=== PATIENT | female | born 1985 | race Caucasian/White ===

== ENCOUNTER 2023-12-11 16:26 | Outpatient (OUT) | payer OTHER, SELFPAY ==
--- NOTE | 2023-12-11 | XR_ITS ---
The [address] [address] Patient Name: DARIUS BRASWELL MRN: [id number] date: 1985 Sex: F Assigned Patient Location: [facility] Current Patient Location: [facility] Accession/Order Number: [id number] Exam Date: 12/11/2023 17:00 Report Date: 12/11/2023 21:22 At the request of: MONSERRAT VELA Procedure: XR foot LT min 3V EXAM: XR foot LT min 3V HISTORY: Left foot pain (M79.672) COMPARISON: None. TECHNIQUE: 3 views of the left foot were obtained. FINDINGS: There is no evidence of an acute fracture or dislocation. The joint spaces are intact throughout. Remote bony fragment of the medial and lateral sesamoid bones at the first metatarsal head are noted. No other soft tissue calcifications are present. XR/XR foot LT min 3V IMPRESSION: No acute fracture or dislocation. Remote fractures are seen at the sesamoid bones of the great toe. The joint spaces are intact throughout. Electronically authenticated by: SHORTY MOLINA Date: 12/11/2023 21:22
== END 2023-12-11 16:27 | disposition home or self-care (01) ==
LOC: RAD 16:30
PROVIDERS: PCP Nurse Practitioner; Visit Provider Nurse Practitioner
DX: M79.672 Pain in left foot (principal); S92.812S Other fracture of left foot, sequela
CPT/HCPCS: 73630

== ENCOUNTER 2024-08-17 19:48 | Outpatient (REF) | payer OTHER, SELFPAY ==
--- OUTSIDE RECORDS SUMMARY | 2024-08-17 19:54 | XMS_ITS | CCD ---
Author Organization [facility] Care Team Providers Care Car Oiler Name Role Phone SIMONA MEDRANO Attending Unavailable AICHHOLZ, BHAKTI Referring Unavailable SIMONA MEDRANO K Admitting Unavailable SIMONA MEDRANO Primary Care Unavailable [place] Attending Provider Bhakti Talavera Primary Care Provider [phone] Kiet Clark Unavailable AICHHOLZ, ECOLOGICAL ECONOMIST BHAKTI Primary Care Unavailable AICHHOLZ, ECOLOGICAL ECONOMIST BHAKTI Consulting Unavailable AICHHOLZ, ECOLOGICAL ECONOMIST BHAKTI Admitting Unavailable AICHHOLZ, ECOLOGICAL ECONOMIST BHAKTI Attending Unavailable DILLON MARIN Consulting Unavailable AICHHOLZ, ECOLOGICAL ECONOMIST BHAKTI Primary Care Unavailable AICHHOLZ, ECOLOGICAL ECONOMIST BHAKTI Admitting Unavailable AICHHOLZ, ECOLOGICAL ECONOMIST BHAKTI Attending Unavailable AICHHOLZ, ECOLOGICAL ECONOMIST BHAKTI Consulting Unavailable AICHHOLZ, ECOLOGICAL ECONOMIST BHAKTI Primary Care Unavailable AICHHOLZ, ECOLOGICAL ECONOMIST BHAKTI Admitting Unavailable AICHHOLZ, ECOLOGICAL ECONOMIST BHAKTI Attending Unavailable AICHHOLZ, ECOLOGICAL ECONOMIST BHAKTI Consulting Unavailable AICHHOLZ, ECOLOGICAL ECONOMIST BHAKTI Primary Care Unavailable AICHHOLZ, ECOLOGICAL ECONOMIST BHAKTI Attending Unavailable AICHHOLZ, ECOLOGICAL ECONOMIST BHAKTI Admitting Unavailable AICHHOLZ, ECOLOGICAL ECONOMIST BHAKTI Consulting Unavailable AICHHOLZ, ECOLOGICAL ECONOMIST BHAKTI Primary Care Unavailable AICHHOLZ, ECOLOGICAL ECONOMIST BHAKTI Attending Unavailable AICHHOLZ, ECOLOGICAL ECONOMIST BHAKTI Admitting Unavailable AICHHOLZ, ECOLOGICAL ECONOMIST BHAKTI Consulting Unavailable DR DILLON RAYO V Consulting Unavailable AICHHOLZ, ECOLOGICAL ECONOMIST BHAKTI Admitting Unavailable AICHHOLZ, ECOLOGICAL ECONOMIST BHAKTI Attending Unavailable AICHHOLZ, ECOLOGICAL ECONOMIST BHAKTI Primary Care Unavailable AICHHOLZ, ECOLOGICAL ECONOMIST BHAKTI Consulting Unavailable AICHHOLZ, ECOLOGICAL ECONOMIST BHAKTI Consulting Unavailable AICHHOLZ, ECOLOGICAL ECONOMIST BHAKTI Admitting Unavailable AICHHOLZ, ECOLOGICAL ECONOMIST BHAKTI Attending Unavailable AICHHOLZ, ECOLOGICAL ECONOMIST BHAKTI Primary Care Unavailable Aichholz HOME MISSION WORKER, Bhakti Unavailable Carlos Desai MD Primary Care Provider [phone] Aichholz STABILIZER OPERATOR-ECOLOGICAL ECONOMIST, Bhakti J Primary Care Provider HALLIE MCGOVERN Attending Unavailable VERHOFF, ANTHONY Referring Unavailable AICHHOLZ, BHAKTI Attending Unavailable FEDERICO MCKEON Attending Unavailable AICHHOLZ, BHAKTI Referring Unavailable FEDERICO MCKEON Attending Unavailable FEDERICO MCKEON Referring Unavailable AICHHOLZ, BHAKTI Attending Unavailable FEDERICO MCKEON Attending Unavailable ADRIAN ARGUELLO Attending Unavailable ERNESTO MENJIVAR Attending Unavailable AICHHOLZ, BHAKTI J Referring Unavailable AICHHOLZ, BHAKTI J Primary Care Unavailable CALEB RODRIGUEZ Attending Unavailable AICHHOLZ, BHAKTI J Referring Unavailable AICHHOLZ, BHAKTI J Primary Care Unavailable VERCOURTNEY BEARDENN N Attending Unavailable AICHHOLZ, BHAKTI J Referring Unavailable AICHHOLZ, BHAKTI J Primary Care Unavailable VERANTHONY BEARDEN N Referring Unavailable AICHHOLZ, BHAKTI J Primary Care Unavailable ERNESTO MENJIVAR Attending Unavailable AICHHOLZ, BHAKTI J Referring Unavailable AICHHOLZ, BHAKTI J Primary Care Unavailable ERNESTO MENJIVAR Attending Unavailable AICHHOLZ, BHAKTI J Referring Unavailable AICHHOLZ, BHAKTI J Primary Care Unavailable AICHHOLZ, BHAKTI J Referring Unavailable AICHHOLZ, BHAKTI J Primary Care Unavailable CALEB RODRIGUEZ Attending Unavailable AICHHOLZ, BHAKTI J Referring Unavailable AICHHOLZ, BHAKTI J Primary Care Unavailable ERNESTO MENJIVAR Attending Unavailable AICHHOLZ, BHAKTI J Referring Unavailable AICHHOLZ, BHAKTI J Primary Care Unavailable ERNESTO MENJIVAR Attending Unavailable AICHHOLZ, BHAKTI J Referring Unavailable AICHHOLZ, BHAKTI J Primary Care Unavailable ERNESTO MENJIVAR Attending Unavailable AICHHOLZ, BHAKTI J Referring Unavailable AICHHOLZ, BHAKTI J Primary Care Unavailable CALEB RODRIGUEZ Attending Unavailable AICHHOLZ, BHAKTI J Referring Unavailable AICHHOLZ, BHAKTI J Primary Care Unavailable ERNESTO MENJIVAR Attending Unavailable AICHHOLZ, BHAKTI J Referring Unavailable AICHHOLZ, BHAKTI J Primary Care Unavailable CALEB RODRIGUEZ Attending Unavailable AICHHOLZ, BHAKTI J Referring Unavailable AICHHOLZ, BHAKTI J Primary Care Unavailable ERNESTO MENJIVAR Attending Unavailable AICHHOLZ, BHAKTI J Referring Unavailable AICHHOLZ, BHAKTI J Primary Care Unavailable ERNESTO MENJIVAR Attending Unavailable AICHHOLZ, BHAKTI J Referring Unavailable AICHHOLZ, BHAKTI J Primary Care Unavailable Allergies Allergy Classification Reported Allergen(s) Allergy Type Date of Onset Reaction(s) Facility Acetaminophen (1 source) Acetaminophen Drug Allergy 1 [facility] Opioid Agonists (2 sources) Morphine Drug Allergy 1 Hives, [facility] Promethazine (1 source) Promethazine Drug Allergy 1 [facility] (4 sources) Acetaminophen / HYDROcodone; Translations: [Vicodin] Drug Allergy 3 vomiting [facility] Repository (20 sources) Morphine; Translations: [MORPHINE] Drug Allergy 9 Itching, Swelling, Flushing [facility] [employer] Other (20 sources) Promethazine; Translations: [PROMETHAZINE] Drug Allergy 9 Itching, Swelling [facility] [employer] Other (1 source) Levamisole Drug Allergy 3 [facility] (1 source) Morphine Drug Allergy 3 [facility] (20 sources) Acetaminophen / HYDROcodone; Translations: [HYDROCODONE-ACET AMINOPHEN] Drug Allergy 9 Unknown, GI Disturbance [facility] (20 sources) HYDROcodone Drug Allergy 3 [facility] (1 source) Acetaminophen Drug Allergy 4 [facility] Medications Current Medications Medication Drug Class(es) Dates Sig (Normalized) Sig (Original) ALPRAZolam 0.25 mg oral tablet (1 source) Benzodiazepine Start: 06-19-2021 take 1 tablet by mouth twice daily as needed for anxiety ALPRAZolam (XANAX) 0.25 mg tablet Indications: Generalized anxiety disorder Take 1 tablet by mouth twice daily as needed for anxiety 30 tablet 06/19/2021 Active amitriptyline hydrochloride 10 mg oral tablet (2 sources) Tricyclic Antidepressant Start: 09-20-2020 End: 12-20-2020 take 10 mg by mouth at bedtime Amitriptyline Active 10 MG PO Bedtime September 20, 2020 4:07pm amoxicillin 500 mg oral capsule (1 source) Penicillin-class Antibacterial Start: 02-17-2024 take 1 capsule by mouth twice daily Amoxicillin 500 mg capsule Active 500 MG PO Twice daily 25 01February 17, 2024 12:00am 24 hr amphetamine aspartate 7.5 mg / amphetamine sulfate 7.5 mg / dextroamphetamine saccharate 7.5 mg / dextroamphetamine sulfate 7.5 mg extended release oral capsule (20 sources) Central Nervous System Stimulant Start: 02-17-2024 Dextroamphetamine -Amphetamine 30 mg capsule,extended release 24hr Active PO Every morning February 17, 2024 12:00am Start: 11-25-2023 take 1 tablet by rudy th once daily amphetamine-dextroamphetamine (Adderall) 15 MG tablet Take 15 mg by mouth Daily 11/25/2023 Active Start: 11-25-2023 take 1 capsule by mo uth in the morning, then take 1 capsule by mouth every twenty-four hours amphetamine-dextroamphetamine XR (Addera ll XR) 30 MG 24 hr capsule Take 30 mg by mouth in the morning. 11/25/2023 Active Start: 08-19-2023 take 1 tablet by rudy th once daily after lunch dextroamphetamine-amphetamine (AdderalL) 15 mg tablet Indications: Attention deficit hyperactivity disorder, combined type Take 1 tablet (15 mg total) by mouth Daily after lunch. Max Daily Amount: 15 mg 30 tablet 08/19/2023 Active Start: 08-19-2023 take 1 capsule by mo uth once daily in the morning amphetamine-dextroamphetamine XR (ADDERA LL XR) 30 mg 24 hr capsule Indications: Attention deficit hyperactivity disorder, combined type Take 1 capsule (30 mg total) by mouth in the morning. Max Daily Amount: 30 mg. 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 CROSS TAPER WITH LAMICTAL ONCE REACHES THERAPEUTIC DOSAGE. 09/10/2023 Active ARIPiprazole 2 M G Not Available Oral for 30 Days Active cephalexin 500 mg oral capsule (5 sources) Cephalosporin Antibacterial Start: 01-03-2021 End: 02-17-2024 take 1 capsule by mouth in the morning, then take 1 capsule by mouth in the evening, then take 1 capsule by mouth at bedtime cephalexin (Keflex) 500 MG capsule Indications: Left foot pain Take 1 capsule (500 mg) by mouth in the morning and 1 capsule (500 mg) in the evening and 1 capsule (500 mg) before bedtime. Do all this for 10 days. 30 capsule 12/11/2023 12/21/2023 Active dexmethylphenidate hydrochloride 10 mg oral tablet (1 source) Central Nervous System Stimulant Start: 12-20-2020 take 1 tablet by mouth twice daily Dexmethylphenidate 10 mg tablet Active 10 MG PO Twice daily December 19, 2020 11:00pm Dextroamphetamine-Amph etamine 15 mg tablet (1 source) Start: 02-17-2024 take 2 tablets by mouth once daily Dextroamphetamine-Amp hetamine 15 mg tablet Active 30 MG PO Daily February 17, 2024 12:00am DULoxetine 60 mg delayed release oral capsule (4 sources) Serotonin and Norepinephrine Reuptake Inhibitor Start: 09-20-2020 End: 12-20-2020 take 60 mg by mouth once daily Duloxetine Active 60 MG PO Daily September 20, 2020 4:07pm take 1 capsule by [facility] every twenty-four hours Cymbalta 30 MG 1 capsule Orally Once a day Active estradiol 0.1 mg/ml vaginal cream (2 sources) Estrogen Start: 07-13-2024 End: 08-12-2024 estradiol (Estrace) 0.1 MG/GM vaginal cream Indications: Rectocele Insert 2 g into the vagina at bedtime At bedtime for 2 weeks, then at bedtime twice a week. 42.5 g 3 07/13/2024 08/12/2024 Active lamoTRIgine 100 mg oral tablet (20 sources) Mood Stabilizer, Anti-epileptic Agent Start: 02-17-2024 take 1 tablet by mouth once daily Lamotrigine 100 mg tablet Active 100 MG PO Daily February 17, 2024 12:00am Start: 09-10-2023 lamoTRIgine (L aMICtal) 25 mg tablet TAKE 1 TABLET DAILY X 2 WEEKS, THEN 2 TABLETS DAILY X 2 WEEKS 42 tablet 09/10/2023 Active LORazepam 0.5 mg oral tablet (4 sources) Benzodiazepine Start: 12-20-2020 take 1 tablet by mouth twice daily as needed for anxiety Lorazepam 0.5 mg tablet Active 0.5 MG PO Twice daily as needed for Anxiety December 19, 2020 11:00pm take 1 tablet by rudy th every twenty-four hours Ativan 0.5 MG 1 tablet at bedtime as needed Orally Once a day Active meloxicam 15 mg oral tablet (11 sources) Nonsteroidal Anti-inflammatory Drug Start: 01-30-2024 End: 03-02-2024 take 1 tablet by mouth once daily meloxicam (Mobic) 15 MG tablet Indications: Sesamoiditis of left foot TAKE 1 TABLET BY MOUTH EVERY DAY 30 tablet 03/02/2024 Active methylPREDNISolone 4 mg oral tablet (12 sources) Corticosteroid Start: 02-17-2024 take 1 tablet by mouth once daily Methylprednisolone 4 mg tablets,dose pack Active 4 MG PO Daily February 17, 2024 12:00am Start: 01-15-2024 End: 07-13-2024 methylPREDNISolone (Medrol D ospak) 4 MG tablets Indications: Sesamoiditis of left foot Follow schedule on MEDROL PACK package instructions to be used as directed 21 tablet 01/15/2024 07/13/2024 Discontinued (Other) Start: 01-15-2024 methylPREDNISo lone (Medrol Dospak) 4 MG tablets Indications: Sesamoiditis of left foot Follow schedule on MEDROL PACK package instructions to be used as directed 21 tablet 01/15/2024 Active Multivitamin Tablet (1 source) Start: 12-20-2020 take 1 tablet by mouth once daily Multivitamin Tablet Active 1 TAB PO Daily December 19, 2020 11:00pm nortriptyline 50 mg oral capsule (20 sources) Tricyclic Antidepressant Start: 02-17-2024 take 1 capsule by mouth once daily Nortriptyline 50 mg capsule Active 50 MG PO Daily February 17, 2024 12:00am Start: 01-07-2023 nortriptyline (Pamelor) 50 MG capsule Take 150 mg by mouth at bedtime Take 3 po at night 01/07/2023 Active take 1 capsule by [facility] once daily Nortriptyline HCl 75 MG TAKE 1 CAPSULE BY MOUTH NIGHTLY Oral for 30 Days Active omeprazole 20 mg delayed release oral capsule (20 sources) Proton Pump Inhibitor take 1 capsule by mouth at bedtime omeprazole (PriLOSEC) [address] capsule Take 20 mg by mouth at bedtime Active take 1 tablet by mouth once autumn y PriLOSEC OTC 20 MG 1 tablet 30 minutes before morning meal Orally Once a day for 30 day(s) Active Omeprazole Magnesium (Prilosec Otc) 20 mg Tablet,Delayed Release (Dr/Ec) (2 sources) Start: 09-20-2020 take 1 tablet by mouth once daily Omeprazole Magnesium (Prilosec Otc) 20 mg Tablet,Delayed Release (Dr/Ec) Active 20 MG PO Daily September 20, 2020 4:07pm Start: 09-20-[address] [facility] once daily at bedtime Omeprazole Magnesium (Prilosec Otc) 20 mg Tablet,Delayed Release (Dr/Ec) Active 20 MG PO Daily at bedtime September 19, 2020 11:00pm ondansetron 4 mg disintegrating oral tablet (14 sources) Serotonin-3 Receptor Antagonist Start: 12-20-2020 End: 02-06-2024 take 1 tablet by mouth every eight hours as needed for nausea and vomiting and nausea and nausea ondansetron ODT (Zofran-ODT) 4 MG disintegrating tablet Indications: Nausea Take 1 tablet (4 mg) by mouth every 8 (eight) hours if needed for nausea or vomiting for up to 7 days Take 4 mg by mouth if needed for nausea or vomiting 21 tablet 01/30/2024 02/06/2024 Active oxyCODONE hydrochloride 5 mg oral tablet (1 source) Opioid Agonist Start: 01-03-2021 take 1 tablet by mouth every six hours as needed for pain Oxycodone 5 mg Tablet Active 5 MG PO Q6H as needed for pain 50 8 January 03, 2021 predniSONE 20 mg oral tablet (3 sources) Start: 12-11-2023 End: 12-16-2023 take 1 tablet by mouth in the morning predniSONE (Deltasone) 20 MG tablet Indications: Left foot pain Take 1 tablet (20 mg) by mouth in the morning and 1 tablet (20 mg) in the evening. Take before meals. Do all this for 5 days. Take with food. 10 tablet 12/11/2023 12/16/2023 Active sertraline 50 mg oral tablet (2 sources) Serotonin Reuptake Inhibitor Start: 09-20-2020 take 100 mg by mouth once daily Sertraline Active 100 MG PO Daily September 20, 2020 4:07pm Start: 09-20-2020 End: 12-20-2020 take 2 tablets by mouth once daily Sertraline 50 mg tablet Discontinued 100 MG PO Daily September 19, 2020 11:00pm December 20, 2020 8:50am SUMAtriptan 50 mg oral tablet (20 sources) Serotonin-1b and Serotonin-1d Receptor Agonist Start: 07-17-2023 End: 01-30-2024 SUMAtriptan (Imitrex) 50 MG tablet Indications: Migraine without aura, not intractable, without status migrainosus (CMS/HCC) , Migraine without aura (CMS/HCC) 1 (ONE) TABLET TAKE AT ONSET OF MIGRAINE HEADACHE, MAY REPEAT IN 2 HOURS IF NEEDED, NO MORE THAN 2 PILLS IN 24 HOURS, AND DO NOT TAKE MORE THAN TWICE A WEEK 9 tablet 1 07/17/2023 01/30/2024 Discontinued (Reorder) Start: 09-20-2020 End: 04-01-2024 SUMAtriptan (Imitrex) 50 MG tablet Indications: Migraine without aura, not intractable, without status migrainosus (CMS/HCC) TAKE 1 TABLET (50 MG) BY MOUTH DAILY NEEDED FOR MIGRAINE MAY REPEAT DOSE ONCE IN 2 HOURS IF NO RELIEF. DO NOT EXCEED 2 DOSES IN 24 HOURS. NO MORE THAN TWICE A WEEK 9 tablet 1 03/02/2024 Active terbinafine 250 mg oral tablet (1 source) Allylamine Antifungal take 1 tablet by mouth once daily Terbinafine HCl 250 MG TAKE 1 TABLET BY MOUTH ONCE DAILY REMINDER FOR LAB WORK CBC AND LIVER FUNCTION TEST MONTHLY WHILE TAKING THIS Oral for 30 Days Active tiZANidine 4 mg oral tablet (20 sources) Central alpha-2 Adrenergic Agonist Start: End: take 1 tablet by mouth at bedtime tiZANidine (Zanaflex) 4 MG tablet Indications: Other muscle spasm , Spasm of muscle Take 1 tablet (4 mg) by mouth at bedtime 90 tablet 06/22/2024 09/20/2024 Active Start: 12-16-2023 End: 03-15-2024 take 1 tablet by mouth at bedtime tiZANidine (Zanaflex) 4 MG tablet Indications: Other muscle spasm , Spasm of muscle Take 1 tablet (4 mg) by mouth at bedtime 90 tablet 1 12/16/2023 03/15/2024 Active Start: 03-09-2021 take 1 tablet by rudy th at bedtime tiZANidine (Zanaflex) 4 MG tablet Indications: Other muscle spasm , Spasm of muscle Take 1 tablet (4 mg) by mouth at bedtime 90 tablet 1 06/19/2023 Active UNABLE TO FIND (1 source) UNABLE TO FIND ed Name: Collagen- 3 tablets BID Active vortioxetine 5 mg oral table t (2 sources) take 1 tablet by rudy th every twenty-four hours Trintellix 5 MG 1 tablet Orally Once a day Active Completed/Discontinued Medications Medication Drug Class(es) Dates Sig (Normalized) Sig (Original) cetirizine hydrochloride 10 mg oral tablet (1 source) Histamine-1 Receptor Antagonist Start: 01-24-2021 End: 09-11-2023 cetirizine (ZyrTEC) 10 mg tablet 01/24/2021 09/11/2023 Discontinued (Therapy completed) clobetasol propionate 0.5 mg/ml topical solution (19 sources) Corticosteroid Start: 12-18-2022 End: 07-07-2024 clobetasol (Temovate) 0.05 % external solution APPLY 3-4 DROPS TO SCALP DAILY NEEDED FOR FLARES 12/18/2022 07/07/2024 Discontinued (Therapy completed) cyclobenzaprine hydrochloride 10 mg oral tablet (1 source) Muscle Relaxant Start: 01-03-2021 End: 02-17-2024 take 1 tablet by mouth three times daily as needed for muscle spasms Cyclobenzaprine 10 mg tablet Discontinued 10 MG PO Three times daily as needed for back spasms 50 January 02, 2021 11:00pm February 17, 2024 3:36pm Problems Active Problems Problem Classification Problem Date Documented Date Episodic/Chronic Anxiety disorders (20 sources) Anxiety; Translations: [Anxiety disorder, unspecified] Onset: 9 03-20-2023 Chronic Attention-deficit, conduct, and disruptive behavior disorders (20 sources) Attention deficit hyperactivity disorder; Translations: [Attention-deficit hyperactivity disorder, unspecified type] Onset: 3 03-20-2023 Chronic Attention-deficit, conduct, and disruptive behavior disorders (1 source) Attention deficit hyperactivity disorder, combined type; Translations: [Attention-deficit hyperactivity disorder, combined type] Onset: 9 07-21-2018 Chronic Attention-deficit, conduct, and disruptive behavior disorders (1 source) Attention-deficit hyperactivity disorder, combined type; Translations: [Attention-deficit hyperactivity disorder, combined type] Onset: 9 Chronic Disorders of lipid metabolism (20 sources) Hyperlipidemia; Translations: [Hyperlipidemia, unspecified] Onset: 3 03-20-2023 Chronic Esophageal disorders (20 sources) Gastroesophageal reflux disease; Translations: [Gastro-esophageal reflux disease without esophagitis] Onset: 3 03-20-2023 Chronic Gastrointestinal hemorrhage (4 sources) Hemorrhage of anus and rectum; Translations: [HEMORRHAGE OF ANUS AND RECTUM] Onset: Episodic Headache; including migraine (20 sources) Migraine; Translations: [Migraine, unspecified, not intractable, without status migrainosus] Onset: 3 03-20-2023 Chronic Immunizations and screening for infectious disease (1 source) Contact with or exposure to other viral diseases; Translations: [Contact with or suspected exposure to severe acute respiratory syndrome coronavirus 2 (SARS-CoV-2)] 02-17-2024 Episodic Joint disorders and dislocations; trauma-related (20 sources) Internal derangement of right knee; Translations: [Unspecified internal derangement of right knee] Onset: 3 03-20-2023 Chronic Menstrual disorders (20 sources) Menorrhagia; Translations: [Excessive and frequent menstruation with regular cycle] Onset: 3 03-20-2023 Chronic Mood disorders (20 sources) Depressive disorder; Translations: [Depression] Onset: 9 Resolved: 2 03-20-2023 Chronic Nutritional deficiencies (4 sources) Vitamin D deficiency, unspecified; Translations: [VITAMIN D DEFICIENCY UNSPECIFIED] Onset: 2 Chronic Other connective tissue disease (5 sources) Capsulitis of metatarsophalangeal joint of left foot; Translations: [Other enthesopathy of left foot and ankle] 01-14-2024 Episodic Other connective tissue disease (5 sources) Metatarsalgia of left foot; Translations: [Metatarsalgia, left foot] 01-14-2024 Episodic Other gastrointestinal disorders (4 sources) Irritable bowel syndrome; Translations: [Irritable bowel syndrome without diarrhea] 02-17-2024 Chronic Other nervous system disorders (4 sources) Chronic pain; Translations: [Other chronic pain] 02-17-2024 Chronic Other non-traumatic joint disorders (7 sources) Sesamoiditis; Translations: [Other specified joint disorders, left ankle and foot] 01-14-2024 Episodic Other upper respiratory infections (2 sources) Streptococcal sore throat; Translations: [Streptococcal pharyngitis] 02-17-2024 Episodic Pleurisy; pneumothorax; pulmonary collapse (1 source) Spontaneous pneumothorax; Translations: [Other pneumothorax] 02-17-2024 Episodic Prolapse of female genital organs (4 sources) Uterine prolapse; Translations: [Uterovaginal prolapse, unspecified] 07-13-2024 Chronic Spondylosis; intervertebral disc disorders; other back problems (20 sources) Arthritis of right sacroiliac joint; Translations: [Spondylosis without myelopathy or radiculopathy, sacral and sacrococcygeal region] Onset: 1 Resolved: 2 Chronic Viral infection (4 sources) COVID-19; Translations: [COVID-19] Onset: 2 Past or Other Problems Problem Classification Problem Date Documented Da te Episodic/Chronic Abdominal pain (9 sources) Right upper quadrant pain; Translations: [Right upper quadrant pain] Episodic Diabetes mellitus without complication (20 sources) Hyperglycemia; Translations: [Hyperglycemia, unspecified] Onset: 03-20-2023 03-20-2023 Episodic Mycoses (5 sources) Tinea unguium; Translations: [TINEA UNGUIUM] Onset: 06-26-2021 Episodic Nausea and vomiting (12 sources) Nausea; Translations: [Nausea] Onset: 01-30-2024 01-30-2024 Episodic Other connective tissue disease (2 sources) Arthrodesis status Onset: 03-30-2021 Resolved: 06-29-2021 Episodic Other connective tissue disease (20 sources) Spasm; Translations: [Other muscle spasm] Onset: 03-20-2023 03-20-2023 Episodic Other connective tissue disease (20 sources) Pain in left foot; Translations: [Pain in left foot] Onset: 12-11-2023 12-11-2023 Episodic Other connective tissue disease (1 source) Pain in left foot; Translations: [Pain in left foot] Onset: 12-18-2023 Episodic Other ear and sense organ disorders (20 sources) Mass of ear structure; Translations: [Other specified disorders of left ear] Onset: 03-20-2023 03-20-2023 Episodic Other gastrointestinal disorders (3 sources) Swollen abdomen; Translations: [Abdominal distension (gaseous)] Episodic Other nervous system disorders (20 sources) Pain in limb; Translations: [Paresthesia of skin] Onset: 2023 2023 Episodic Other non-traumatic joint disorders (3 sources) Knee pain; Translations: [Pain in right knee] Episodic Other non-traumatic joint disorders (16 sources) Hip pain; Translations: [Pain in right hip] Onset: 03-20-2023 03-20-2023 Episodic Other non-traumatic joint disorders (20 sources) Pain in right knee; Translations: [Pain in joint, lower leg] Onset: 03-20-2023 03-20-2023 Episodic Other non-traumatic joint disorders (6 sources) Pain in right hip joint; Translations: [Pain in right hip] Onset: 05-05-2020 03-20-2023 Episodic Other nutritional; endocrine; and metabolic disorders (1 source) Abnormal weight loss; Translations: [ABNORMAL WEIGHT LOSS] Onset: 10-03-2021 Episodic Residual codes; unclassified (3 sources) Postprocedural state finding; Translations: [Other specified postprocedural states] Episodic Residual codes; unclassified (20 sources) Insomnia; Translations: [Insomnia, unspecified] Onset: 03-20-2023 03-20-2023 Episodic Screening and history of mental health and substance abuse codes (20 sources) Depression screening positive; Translations: [Encounter for screening for depression] Onset: 03-20-2023 03-20-2023 Episodic Spondylosis; intervertebral disc disorders; other back problems (20 sources) Sacroiliac instability; Translations: [Spinal instabilities, sacral and sacrococcygeal region] Onset: 01-21-2020 Episodic Syncope (5 sources) Syncope and collapse; Translations: [Syncope] Onset: 09-28-2021 Episodic Results Test Name Value Interpretation Reference Range Facility No Panel InformationOrdered By: Amanda Craig on 02-17-2024 Quick Strep (POC) [facility] CBC AND AUTO DIFFon 12-18-19 24 ABSOLUTE BASOPHIL 0.0 X10E9/L Normal 0.0-0.2 [facility] Comment on above: Performed By: #### Jeimy MONROE, 4- #### [facility] ([id number]) [address], [address] [place] [address] ABSOLUTE NEUTROPHIL 6.0 X10E9/L Normal 1.5-6.6 [facility] Comment on above: Performed By: #### Jeimy MONROE, 4- #### [facility] ([id number]) [address] [address] [place] [address] Basophils/100 WBC (Bld) 0.5 % Normal [facility] Comment on above: Performed By: #### Jeimy MONROE, 4- #### [facility] ([id number]) [address] [address] [place] [address] Eosinophils (Bld) [#/Vol] 0.2 10*3/uL Normal 0.0-0.4 [facility] Comment on above: Performed By: #### Jeimy MONROE, 4-1 #### [facility] ([id number]) [address], [facility] [address] [place] [address] Eosinophils/100 WBC (Bld) 2.1 % Normal [facility] Comment on above: Performed By: #### Jeimy MONROE, 3083- #### [facility] ([id number]) [address], [address] [place] [address] Erythrocyte distribution width (RBC) [Ratio] 13.2 % Normal 11.5-15.0 [facility] Comment on above: Performed By: #### Jeimy MONROE, 3083- #### [facility] ([id number]) [address] [place] [address] Hematocrit (Bld) [Volume fraction] 39.3 % Normal 35-47 [facility] Comment on above: Performed By: #### Jeimy MONROE, 3083- #### [facility] ([id number]) [address] [place] [address] Hemoglobin (Bld) [Mass/Vol] 12.9 g/dL Normal 11.7-15.5 [facility] Comment on above: Performed By: #### Jeimy MONROE, 3083- #### [facility] ([id number]) [address] [place] [address] Lymphocytes (Bld) [#/Vol] 1.7 10*3/uL Normal 1.0-3.5 [facility] Comment on above: Performed By: #### Jeimy MONROE, 3083- #### [facility] ([id number]) [address] [place] [address] Lymphocytes/100 WBC (Bld) 19.5 % Normal [facility] Comment on above: Performed By: #### Jeimy MONROE, 3083-1 #### [facility] ([id number]) [address], [address] [place] [address] MCH (RBC) [Entitic mass] 30.5 pg Normal 27-34 [facility] Comment on above: Performed By: #### Jeimy MONROE, 3083- #### [facility] ([id number]) [address], [address] [place] [address] MCHC (RBC) [Mass/Vol] 32.8 g/dL Normal 32-36 [facility] Comment on above: Performed By: #### Jeimy MONROE, 3083- #### [facility] ([id number]) [address] [place] [address] MCV (RBC) [Entitic vol] 93 fL Normal 80-100 [facility] Comment on above: Performed By: #### Jeimy MONROE, 3083- #### [facility] ([id number]) [address], [address] [place] [address] Monocytes (Bld) [#/Vol] 0.6 10*3/uL Normal 0-0.9 [facility] Comment on above: Performed By: #### Jeimy MONROE, 3083- #### [facility] ([id number]) [address] [place] [address] Monocytes/100 WBC (Bld) 7.5 % Normal [facility] Comment on above: Performed By: #### Jeimy MONROE, 3083- #### [facility] ([id number]) [address] [place] [address] Neutrophils/100 WBC (Bld) 70.4 % Normal [facility] Comment on above: Performed By: #### Jeimy MONROE, 3083- #### [facility] ([id number]) [address], [address] [place] [address] Platelet mean volume (Bld) [Entitic vol] 8.8 fL Normal 7-12 [facility] Comment on above: Performed By: #### Jeimy MONROE, 3083- #### [facility] ([id number]) [address], [address] [place] [address] Platelets (Bld) [#/Vol] 253 10*3/uL Normal 150-450 [facility] Comment on above: Performed By: #### Jeimy MONROE, 3084-1 #### [facility] ([id number]) [address], [facility] [address] [place] [address] RBC COUNT 4.24 X10E12/L Normal 3.80-5.20 [facility] Comment on above: Performed By: #### Jeimy MONROE, 3084-1 #### [facility] ([id number]) [address], [address] [address] WBC (Bld) [#/Vol] 8.5 10*3/uL Normal 4.0-11.0 [facility] Comment on above: Performed By: #### Jeimy MONROE, 3084-1 #### [facility] ([id number]) [address], [address] [address] CBC W Auto Differential pane l (Bld)on 12-18-2023 ABSOLUTE BASOPHIL 0.0 [facility] Comment on above: PERFORMED AT [facility] [address] [address] Basophils/100 WBC (Bld) 0.5 % [facility] Eosinophils (Bld) [#/Vol] 0.2 10*3/uL [facility] Eosinophils/100 WBC (Bld) 2.1 % [facility] Erythrocyte distribution width (RBC) [Ratio] 13.2 % 11.5 - 15.0 % [facility] Hematocrit (Bld) [Volume fraction] 39.3 % 35 - 47 % [facility] Hemoglobin (Bld) [Mass/Vol] 12.9 g/dL 11.7 - 15.5 g/dL [facility] Lymphocytes (Bld) [#/Vol] 1.7 10*3/uL [facility] Lymphocytes/100 WBC (Bld) 19.5 % [facility] MCH (RBC) [Entitic mass] 30.5 pg 27 - 34 pg [facility] MCHC (RBC) [Mass/Vol] 32.8 g/dL 32 - 36 g/dL [facility] MCV (RBC) [Entitic vol] 93 fL 80 - 100 fL [facility] Monocytes (Bld) [#/Vol] 0.6 10*3/uL [facility] Monocytes/100 WBC (Bld) 7.5 % [facility] Neutrophils (Bld) [#/Vol] 6.0 10*3/uL [facility] Neutrophils/100 WBC (Bld) 70.4 % [facility] Platelet mean volume (Bld) [Entitic vol] 8.8 fL 7 - 12 fL [facility] Platelets (Bld) [#/Vol] 253 10*3/uL [facility] RBC (Bld) [#/Vol] 4.24 10*6/uL [facility] WBC corrected for nucl RBC Auto (Bld) [#/Vol] 8.5 [facility] URIC ACIDon 12-18-2023 Urate [Mass/Vol] 3.1 mg/dL Normal 2.6-7.2 [facility] Comment on above: Performed By: #### C FER, 3084-1 #### [facility] ([id number]) [address] [facility], [address] [place] [address] XR SPINE CERVICAL 4 OR 5 VWS on 09-28-2023 XR SPINE CERVICAL 4 OR 5 VWS XR SPINE CERVICAL 4 OR 5 VWS HISTORY: A 38-year-old female with the history of the spinal fusion surgery. Complaining of chronic neck pain and tingling and numbness in both upper extremities. Cervical radiculopathy. TECHNIQUE: Cervical spine including oblique views: 5 views COMPARISON: Comparison is made with cervical spine radiographs of 05/01/2019. FINDINGS: Vertebral heights are normal. There is loss of normal cervical lordosis but no spondylolisthesis is identified. There is status post anterior cervical spinal fusion from C5 to 6 7 with fixation hardware. No hardware complications are seen. There are degenerative changes in the cervical spine and reduction of disc spaces at C3-C4. Facet joints are intact. There is no evidence of bony cervical rib. No significant prevertebral soft tissue abnormality seen. Right and left oblique views reveal patent neural foramina bilaterally. IMPRESSION: * Surgical anterior spinal fusion from C5 to C7 with fixation hardware. No hardware complications are seen. * Disc degenerative disease in the cervical spine and reduction of disc spaces at C3-C4. Note foramina are patent. * Loss of normal cervical lordosis. Finalized by Min Madison MD on 09/28/2023 9:01 PM Normal [facility] OCC BLD IMMUNO SCREENon 12-07 OCCULT BLOOD Negative Normal NEGATIVE [facility] Comment on above: Performed By: #### F T3, TSH, LIVER, BMP #### [facility] [address] [address] [address] Elvis Buenrostro CBC AUTO DIFFon 09-28-2021 BASO # 0.0 103/ul Normal 0.0-0.1 [facility] Comment on above: Performed By: #### C BC #### [facility] [address] [place] [address] Dr. Elvis Buenrostro Basophils/100 WBC (Bld) 0.7 % Normal 0.2-2.0 [facility] Comment on above: Performed By: #### C BC #### [facility] [address] [place] [address] Dr. Elvis Buenrostro EO # 0.1 103/ul Normal 0.0-0.7 [facility] Comment on above: Performed By: #### C BC #### [facility] [address] [place] [address] Dr. Elvis Buenrostro Eosinophils/100 WBC (Bld) 1.5 % Normal 0.9-7.0 [facility] Comment on above: Performed By: #### C BC #### [facility] [address] [place] [address] Dr. Elvis Buenrostro Erythrocyte distribution width (RBC) [Ratio] 12.2 % Normal 11.0-15.0 [facility] Comment on above: Performed By: #### C BC #### [facility] [address] [place] [address] Dr. Elvis Buenrostro Hematocrit (Bld) [Volume fraction] 42.2 % Normal 36.0-48.0 [facility] Comment on above: Performed By: #### C BC #### [facility] [address] [place] [address] Dr. Elvis Buenrostro Hemoglobin (Bld) [Mass/Vol] 14.1 g/dL Normal 12.0-16.0 [facility] Comment on above: Performed By: #### C BC #### [facility] [address] [place] [address] Dr. Elvis Buenrostro IG # 0.01 10e3/ul Normal 0.00-0.03 [facility] Comment on above: Performed By: #### C BC #### [facility] [address] [place] [address] Dr. Elvis Buenrostro IG % 0.2 % Normal 0.0-0.5 [facility] Comment on above: Performed By: #### C BC #### [facility] [address] [place] [address] Dr. Elvis Buenrostro LYMPH # 1.5 103/ul Normal 1.2-3.8 [facility] Comment on above: Performed By: #### C BC #### [facility] [address] [place] [address] Dr. Elvis Buenrostro Lymphocytes/100 WBC (Bld) 25.2 % Normal 20.5-60.0 [facility] Comment on above: Performed By: #### C BC #### [facility] [address] [place] [address] Dr. Elvis Buenrostro MANUAL DIFF REQ NO Normal [facility] Comment on above: Performed By: #### C BC #### [facility] [address] [place] [address] Dr. Elvis Buenrostro MCH (RBC) [Entitic mass] 31.4 pg Normal 26.7-34.0 [facility] Comment on above: Performed By: #### C BC #### [facility] [address] [place] [address] Dr. Elvis Bunerostro MCHC (RBC) [Mass/Vol] 33.4 g/dL Normal 29.9-35.2 [facility] Comment on above: Performed By: #### C BC #### [facility] [address] [place] [address] Dr. Elvis Buenrostro MCV (RBC) [Entitic vol] 94.0 fL Normal 81.0-99.0 [facility] Comment on above: Performed By: #### C BC #### [facility] [address] [place] [address] Dr. Elvis Buenrostro MONO # 0.5 103/ul Normal 0.3-0.8 [facility] Comment on above: Performed By: #### C BC #### [facility] [address] [place] [address] Dr. Elvis Buenrostro Monocytes/100 WBC (Bld) 8.6 % Normal 1.7-12.0 [facility] Comment on above: Performed By: #### C BC #### [facility] [address] [place] [address] Dr. Elvis Buenrostro NEUT # 3.9 103/ul Normal 1.4-6.5 [facility] Comment on above: Performed By: #### C BC #### [facility] [address] [place] [address] Dr. Elvis Buenrostro Neutrophils/100 WBC (Bld) 63.8 % Normal 43.0-75.0 [facility] Comment on above: Performed By: #### C BC #### [facility] [address] [place] [address] Dr. Elvis Buenrostro Platelet mean volume (Bld) [Entitic vol] 10.0 fL Normal 9.5-13.5 [facility] Comment on above: Performed By: #### C BC #### [facility] [address] [place] [address] Dr. Elvis Buenrostro PLT 242 103/ul Normal 150-450 [facility] Comment on above: Performed By: #### C BC #### [facility] [address] [place] [address] Dr. Elvis Buenrostro RBC 4.49 106/ul Normal 4.20-5.40 [facility] Comment on above: Performed By: #### C BC #### [facility] [address] [place] [address] Dr. Elvis Buenrostro WBC 6.1 103/ul Normal 4.0-11.0 [facility] Comment on above: Performed By: #### C BC #### [facility] [address] [address] [address] Elvis Buenrostro FREE T3on 09-28-2021 FREE T3 2.17 pg/mlL Critically low 2.18-3.98 [facility] Comment on above: Performed By: #### F T3, TSH, LIVER, BMP #### [facility] [address] [address] [address] Elvis Buenrostro FREE T4on 09-28-2021 Free T4 [Mass/Vol] 1.23 ng/dL Normal 0.76-1.46 [facility] Comment on above: Performed By: #### F T3, TSH, LIVER, BMP #### [facility] [address] [place] [address] Dr. Elvis Buenrostro LIVER PROFILEon 09-28-2021 Albumin [Mass/Vol] 3.8 g/dL Normal 3.4-5.0 [facility] Comment on above: Performed By: #### F T3, TSH, LIVER, BMP #### [facility] [address] [address] [address] Elvis Buenrostro Albumin/Globulin [Mass ratio] 1.3 {ratio} Normal [facility] Comment on above: Performed By: #### F T3, TSH, LIVER, BMP #### [facility] [address] [address] [address] Elvis Buenrostro ALP [Catalytic activity/Vol] 54 U/L Normal 46-116 [facility] Comment on above: Performed By: #### F T3, TSH, LIVER, BMP #### [facility] [address] [address] [address] Elvis Buenrostro ALT [Catalytic activity/Vol] 23 U/L Normal 14-59 [facility] Comment on above: Performed By: #### F T3, TSH, LIVER, BMP #### [facility] [address] [address] [address] Elvis Buenrostro AST [Catalytic activity/Vol] 11 U/L Critically low 15-37 [facility] Comment on above: Performed By: #### F T3, TSH, LIVER, BMP #### [facility] [address] [place] [address] Dr. Elvis Buenrostro BILI, CONJUGATED 0.1 mg/dL Normal 0.0-0.2 [facility] Comment on above: Performed By: #### F T3, TSH, LIVER, BMP #### [facility] [address] [place] [address] Dr. Elvis Buenrostro Bilirubin [Mass/Vol] 0.6 mg/dL Normal 0.2-1.0 [facility] Comment on above: Performed By: #### F T3, TSH, LIVER, BMP #### [facility] [address] [place] [address] Dr. Elvis Buenrostro Globulin (S) [Mass/Vol] 3.0 g/dL Normal [facility] Comment on above: Performed By: #### F T3, TSH, LIVER, BMP #### [facility] [address] [place] [address] Dr. Elvis Buenrostro Protein [Mass/Vol] 6.8 g/dL Normal 6.4-8.2 [facility] Comment on above: Performed By: #### F T3, TSH, LIVER, BMP #### [facility] [address] [place] [address] Dr. Elvis Buenrostro PREG HCG QUALon 09-28-2021 , QUAL Negative Normal NEGATIVE [facility] Comment on above: Performed By: #### F T3, TSH, LIVER, BMP #### [facility] [address] [place] [address] Dr. Elvis Buenrostro PROF CHEM 8 (BAS METB)on Anion gap [Moles/Vol] 11.0 mmol/L Normal [facility] Comment on above: Performed By: #### F T3, TSH, LIVER, BMP #### [facility] [address] [place] [address] Dr. Elvis Buenrostro Calcium [Mass/Vol] 8.4 mg/dL Critically low 8.5-10.1 [facility] Comment on above: Performed By: #### F T3, TSH, LIVER, BMP #### [facility] [address] [address] [address] Elvis Buenrostro Chloride [Moles/Vol] 104 mmol/L Normal 98-107 [facility] Comment on above: Performed By: #### F T3, TSH, LIVER, BMP #### [facility] [address] [address] [address] Elvis Buenrostro CO2 [Moles/Vol] 28.1 mmol/L Normal 21.0-32.0 [facility] Comment on above: Performed By: #### F T3, TSH, LIVER, BMP #### [facility] [address] [address] [address] Elvis Buenrostro Creatinine [Mass/Vol] 1.11 mg/dL Critically high 0.55-1.02 [facility] Comment on above: Performed By: #### F T3, TSH, LIVER, BMP #### [facility] [address] [address] [address] Elvis Buenrostro EGFR-AF [place] >60 Normal >=60 [facility] Comment on above: Performed By: #### F T3, TSH, LIVER, BMP #### [facility] [address] [address] [address] Elvis Buenrostro EGFR-NON AF [place] 55 mL/min/1.73m2 Critically low >=60 [facility] Comment on above: Performed By: #### F T3, TSH, LIVER, BMP #### [facility] [address] [address] [address] Elvis Buenrostro Glucose [Mass/Vol] 89 mg/dL Normal 74-106 [facility] Comment on above: Performed By: #### F T3, TSH, LIVER, BMP #### [facility] [address] [address] [address] Elvis Buenrostro Potassium [Moles/Vol] 4.1 mmol/L Normal 3.5-5.1 [facility] Comment on above: Performed By: #### F T3, TSH, LIVER, BMP #### [facility] [address] [address] [address] Elvis Buenrostro Sodium [Moles/Vol] 139 mmol/L Normal 136-145 [facility] Comment on above: Performed By: #### F T3, TSH, LIVER, BMP #### [facility] [address] [place] [address] Dr. Elvis Buenrostro Urea nitrogen [Mass/Vol] 11.0 mg/dL Normal 7.0-18.0 [facility] Comment on above: Performed By: #### F T3, TSH, LIVER, BMP #### [facility] [address] [place] [address] Dr. Elvis Buenrostro Urea nitrogen/Creatinine [Mass ratio] 9.9 mg/mg Normal [facility] Comment on above: Performed By: #### F T3, TSH, LIVER, BMP #### [facility] [address] [place] [address] Dr. Elvis Buenrostro TSHon 09-28-2021 TSH 1.217 uIU/mL Normal 0.358-3.740 [facility] Comment on above: Performed By: #### F T3, TSH, LIVER, BMP #### [facility] [address] [place] [address] Dr. Elvis Buenrostro UA (CLEAN/CATCH) C D STILL OPERATOR/MICRO I F IND.on 09-28-2021 Bilirubin Ql (U) Negative Normal NEGATIVE [facility] Comment on above: Performed By: #### U ACSIND, UMICRO #### [facility] [address] [place] [address] Dr. Elvis Buenrostro Clarity (U) CLEAR Normal CLEAR [facility] Comment on above: Performed By: #### U ACSIND, UMICRO #### [facility] [address] [place] [address] Dr. Elvis Buenrostro Color (U) LT. YELLOW Normal YELLOW [facility] Comment on above: Performed By: #### U ACSIND, UMICRO #### [facility] [address] [place] [address] Dr. Elvis Buenrostro Glucose Ql (U) Negative Normal NEGATIVE [facility] Comment on above: Performed By: #### U ACSIND, UMICRO #### [facility] [address] [place] [address] Dr. Elvis Buenrostro Hemoglobin Ql (U) Negative Normal NEGATIVE [facility] Comment on above: Performed By: #### U ACSIND, UMICRO #### [facility] [address] [address] [address] Elvis Buenrostro Ketones Ql (U) Negative Normal NEGATIVE [facility] Comment on above: Performed By: #### U ACSIND, UMICRO #### [facility] [address] [address] [address] Elvis Buenrostro LEUKOCYTES Negative Normal NEGATIVE [facility] Comment on above: Performed By: #### U ACSIND, UMICRO #### [facility] [address] [address] [address] Elvis Buenrostro Nitrite Ql (U) Negative Normal NEGATIVE [facility] Comment on above: Performed By: #### U ACSIND, UMICRO #### [facility] [address] [address] [address] Elvis Buenrostro pH (U) 7.0 [pH] Normal 5-9 [facility] Comment on above: Performed By: #### U ACSIND, UMICRO #### [facility] [address] [address] [address] Elvis Buenrostro SPEC GRAVITY 1.010 Normal 1.005-<=1.025 [facility] Comment on above: Performed By: #### U ACSIND, UMICRO #### [facility] [address] [address] [address] Elvis Buenrostro UA PROTEIN Negative Normal NEGATIVE/ TRACE [facility] Comment on above: Performed By: #### U ACSIND, UMICRO #### [facility] [address] [address] [address] Elvis Buenrostro UR MICRO IND NOT INDICATED Normal [facility] Comment on above: Performed By: #### U ACSIND, UMICRO #### [facility] [address] [address] [address] Elvis Buenrostro Urobilinogen Qn (U) 0.2 {Marcel'U}/dL Normal 0.2 - 1. 0 [facility] Comment on above: Performed By: #### U ACSIND, UMICRO #### [facility] [address] [address] [address] Elvis Buenrostro URINE MICROSCOPIC ONLYon BACTERIA NONE SEEN Normal NONE SEEN [facility] Comment on above: Performed By: #### U ACSIND, UMICRO #### [facility] [address] [address] [address] Elvis Buenrostro Bacteria identified Cx Nom (U) NOT INDICATED Normal [facility] Comment on above: Performed By: #### U ACSIND, UMICRO #### [facility] [address] [address] [address] Elvis Buenrostro CAST NONE SEEN Normal NONE SEEN [facility] Comment on above: Performed By: #### U ACSIND, UMICRO #### [facility] [address] [place] [address] Dr. Elvis Buenrostro Crystals LM Nom (Urine sed) NONE SEEN Normal NONE SEEN [facility] Comment on above: Performed By: #### U ACSIND, UMICRO #### [facility] [address] [place] [address] Dr. Elvis Buenrostro Epithelial cells LM Ql (Urine sed) NONE SEEN Normal NONE SEEN /RARE [facility] Comment on above: Performed By: #### U ACSIND, UMICRO #### [facility] [address] [place] [address] Dr. Elvis Buenrostro MUCOUS NONE SEEN Normal NONE SEEN [facility] Comment on above: Performed By: #### U ACSIND, UMICRO #### [facility] [address] [address] [address] Elvis Buenrostro RBC NONE SEEN Abnormal 0-2 [facility] Comment on above: Performed By: #### U ACSIND, UMICRO #### [facility] [address] [place] [address] Dr. Elvis Buenrostro WBC NONE SEEN Normal NONE SEEN [facility] Comment on above: Performed By: #### U ACSIND, UMICRO #### [facility] [address] [place] [address] Dr. Elvis Buenrostro CBC AUTO DIFFon 08-24-2021 BASO # 0.0 103/ul Normal 0.0-0.1 [facility] Comment on above: Performed By: #### F T3, TSH, LIVER, BMP #### [facility] [address] [address] [address] Elvis Buenrostro Basophils/100 WBC (Bld) 0.7 % Normal 0.2-2.0 [facility] Comment on above: Performed By: #### F T3, TSH, LIVER, BMP #### [facility] [address] [place] [address] Dr. Elvis Buenrostro EO # 0.1 103/ul Normal 0.0-0.7 [facility] Comment on above: Performed By: #### F T3, TSH, LIVER, BMP #### [facility] [address] [place] [address] Dr. Elvis Buenrostro Eosinophils/100 WBC (Bld) 1.5 % Normal 0.9-7.0 [facility] Comment on above: Performed By: #### F T3, TSH, LIVER, BMP #### [facility] [address] [place] [address] Dr. Elvis Buenrostro Erythrocyte distribution width (RBC) [Ratio] 12.8 % Normal 11.0-15.0 [facility] Comment on above: Performed By: #### F T3, TSH, LIVER, BMP #### [facility] [address] [place] [address] Dr. Elvis Buenrostro Hematocrit (Bld) [Volume fraction] 44.5 % Normal 36.0-48.0 [facility] Comment on above: Performed By: #### F T3, TSH, LIVER, BMP #### [facility] [address] [place] [address] Dr. Elvis Buenrostro Hemoglobin (Bld) [Mass/Vol] 14.4 g/dL Normal 12.0-16.0 [facility] Comment on above: Performed By: #### F T3, TSH, LIVER, BMP #### [facility] [address] [place] [address] Dr. Elvis Buenrostro IG # 0.02 10e3/ul Normal 0.00-0.03 [facility] Comment on above: Performed By: #### F T3, TSH, LIVER, BMP #### [facility] [address] [place] [address] Dr. Elvis Buenrostro IG % 0.3 % Normal 0.0-0.5 [facility] Comment on above: Performed By: #### F T3, TSH, LIVER, BMP #### [facility] [address] [place] [address] Dr. Elvis Buenrostro LYMPH # 1.5 103/ul Normal 1.2-3.8 [facility] Comment on above: Performed By: #### F T3, TSH, LIVER, BMP #### [facility] [address] [place] [address] Dr. Elvis Buenrostro Lymphocytes/100 WBC (Bld) 25.4 % Normal 20.5-60.0 [facility] Comment on above: Performed By: #### F T3, TSH, LIVER, BMP #### [facility] [address] [place] [address] Dr. Elvis Buenrostro MANUAL DIFF REQ NO Normal [facility] Comment on above: Performed By: #### F T3, TSH, LIVER, BMP #### [facility] [address] [place] [address] Dr. Elvis Buenrostro MCH (RBC) [Entitic mass] 31.1 pg Normal 26.7-34.0 [facility] Comment on above: Performed By: #### F T3, TSH, LIVER, BMP #### [facility] [address] [place] [address] Dr. Elvis Buenrostro MCHC (RBC) [Mass/Vol] 32.4 g/dL Normal 29.9-35.2 [facility] Comment on above: Performed By: #### F T3, TSH, LIVER, BMP #### [facility] [address] [place] [address] Dr. Elvis Buenrostro MCV (RBC) [Entitic vol] 96.1 fL Normal 81.0-99.0 [facility] Comment on above: Performed By: #### F T3, TSH, LIVER, BMP #### [facility] [address] [place] [address] Dr. Elvis Buenrostro MONO # 0.5 103/ul Normal 0.3-0.8 [facility] Comment on above: Performed By: #### F T3, TSH, LIVER, BMP #### [facility] [address] [place] [address] Dr. Elvis Buenrostro Monocytes/100 WBC (Bld) 7.6 % Normal 1.7-12.0 [facility] Comment on above: Performed By: #### F T3, TSH, LIVER, BMP #### [facility] [address] [place] [address] Dr. Elvis Buenrostro NEUT # 3.9 103/ul Normal 1.4-6.5 [facility] Comment on above: Performed By: #### F T3, TSH, LIVER, BMP #### [facility] [address] [place] [address] Dr. Elvis Buenrostro Neutrophils/100 WBC (Bld) 64.5 % Normal 43.0-75.0 [facility] Comment on above: Performed By: #### F T3, TSH, LIVER, BMP #### [facility] [address] [place] [address] Dr. Elvis Buenrostro Platelet mean volume (Bld) [Entitic vol] 11.2 fL Normal 9.5-13.5 [facility] Comment on above: Performed By: #### F T3, TSH, LIVER, BMP #### [facility] [address] [place] [address] Dr. Elvis Buenrostro PLT 244 103/ul Normal 150-450 [facility] Comment on above: Performed By: #### F T3, TSH, LIVER, BMP #### [facility] [address] [place] [address] Dr. Elvis Buenrostro RBC 4.63 106/ul Normal 4.20-5.40 [facility] Comment on above: Performed By: #### F T3, TSH, LIVER, BMP #### [facility] [address] [place] [address] Dr. Elvis Buenrostro WBC 6.1 103/ul Normal 4.0-11.0 [facility] Comment on above: Performed By: #### F T3, TSH, LIVER, BMP #### [facility] [address] [place] [address] Dr. Elvis Buenrostro LIVER PROFILEon 08-24-2021 Albumin [Mass/Vol] 4.0 g/dL Normal 3.4-5.0 [facility] Comment on above: Performed By: #### F T3, TSH, LIVER, BMP #### [facility] [address] [place] [address] Dr. Elvis Buenrostro Albumin/Globulin [Mass ratio] 1.3 {ratio} Normal [facility] Comment on above: Performed By: #### F T3, TSH, LIVER, BMP #### [facility] [address] [place] [address] Dr. Elvis Buenrostro ALP [Catalytic activity/Vol] 65 U/L Normal 46-116 [facility] Comment on above: Performed By: #### F T3, TSH, LIVER, BMP #### [facility] [address] [place] [address] Dr. Elvis Buenrostro ALT [Catalytic activity/Vol] 20 U/L Normal 14-59 [facility] Comment on above: Performed By: #### F T3, TSH, LIVER, BMP #### [facility] [address] [place] [address] Dr. Elvis Buenrostro AST [Catalytic activity/Vol] 16 U/L Normal 15-37 [facility] Comment on above: Performed By: #### F T3, TSH, LIVER, BMP #### [facility] [address] [place] [address] Dr. Elvis Buenrostro BILI, CONJUGATED 0.1 mg/dL Normal 0.0-0.2 [facility] Comment on above: Performed By: #### F T3, TSH, LIVER, BMP #### [facility] [address] [place] [address] Dr. Elvis Buenrostro Bilirubin [Mass/Vol] 0.4 mg/dL Normal 0.2-1.0 [facility] Comment on above: Performed By: #### F T3, TSH, LIVER, BMP #### [facility] [address] [place] [address] [address] Elvis Buenrostro Globulin (S) [Mass/Vol] 3.0 g/dL Normal [facility] Comment on above: Performed By: #### F T3, TSH, LIVER, BMP #### [facility] [address] [place] [address] [address] Elvis Buenrostro Protein [Mass/Vol] 7.0 g/dL Normal 6.4-8.2 [facility] Comment on above: Performed By: #### F T3, TSH, LIVER, BMP #### [facility] [address] [place] [address] [address] Elvis Buenrostro VITAMIN D 25 OHon 08-24-2021 VIT D 25-OH 87.7 ng/mL Normal [facility] Comment on above: Performed By: #### F T3, TSH, LIVER, BMP #### [facility] [address] [place] [address] [address] Elvis Buenrostro VIT D RANGES SEE BELOW Normal [facility] Comment on above: Result Comment: <20 ng/mL Vit D deficient 20 - <30 ng/mL Vit D insufficient 30 - 100 ng/mL Vit D sufficient >100 ng/mL Potential Toxicity Performed By: #### F T3, TSH, LIVER, BMP #### [facility] [address] [place] [address] [address] Elvis Buenrostro XR si jointson 06-29-2021 XR si joints [facility] [place] [address] XRay Report Signed Patient: Gissel Chapa MR#: [id number] : 1985 Acct:[id number] Age/Sex: 35 / F ADM Date: 06/29/21 Loc: XD Room: Type: [facility] Attending Dr: Kiet Clark MD Ordering Provider: Kiet Clark MD Date of Service: 06/29/21 XR/XR si joints: [id number] Copies to: Kiet Clark MD Sacroiliac joints 06/29/2021. CLINICAL DATA: Sacroiliac instability. FINDINGS: 4 views of the sacroiliac joints were obtained. There are postsurgical changes related to L5-S1 posterior fusion and fusion of the right sacroiliac joint. The hardware appears intact. Both sacroiliac joints are intact. There are mild sclerotic changes at the sacroiliac joint on the left. No bony erosion or destruction is seen. There are chronic findings at the ischial tuberosity on the right. XR/XR si joints IMPRESSION: Postsurgical changes. Intact sacroiliac joints demonstrating mild sclerotic changes on the left. Chronic findings at the right ischial tuberosity. Impression dictated by: Ceasar Quijano Jr., M.D.06/29/2021 3:58 PM Dictation Location: [place] [address] Transcribed By: [facility] 06/29/211557 Dictated By: Ceasar Quijano Jr, MD 06/29/21 155 Signed By: 06/29/21 155 [facility] CBC AUTO DIFFon 06-26-2021 BASO # 0.0 103/ul Normal 0.0-0.1 [facility] Comment on above: Performed By: #### F T3, TSH, LIVER, BMP #### [facility] [address] [place] [address] [address] Elvis Buenrostro Basophils/100 WBC (Bld) 0.3 % Normal 0.2-2.0 [facility] Comment on above: Performed By: #### F T3, TSH, LIVER, BMP #### [facility] [address] [place] [address] [address] Elvis Buenrostro EO # 0.1 103/ul Normal 0.0-0.7 [facility] Comment on above: Performed By: #### F T3, TSH, LIVER, BMP #### [facility] [address] [place] [address] [address] Elvis Buenrostro Eosinophils/100 WBC (Bld) 1.3 % Normal 0.9-7.0 [facility] Comment on above: Performed By: #### F T3, TSH, LIVER, BMP #### [facility] [address] [place] [address] [address] Elvis Buenrostro Erythrocyte distribution width (RBC) [Ratio] 12.9 % Normal 11.0-15.0 [facility] Comment on above: Performed By: #### F T3, TSH, LIVER, BMP #### [facility] [address] [place] [address] Dr. Elvis Buenrostro Hematocrit (Bld) [Volume fraction] 44.0 % Normal 36.0-48.0 [facility] Comment on above: Performed By: #### F T3, TSH, LIVER, BMP #### [facility] [address] [place] [address] Dr. Elvis Buenrostro Hemoglobin (Bld) [Mass/Vol] 14.3 g/dL Normal 12.0-16.0 [facility] Comment on above: Performed By: #### F T3, TSH, LIVER, BMP #### [facility] [address] [place] [address] Dr. Elvis Buenrostro IG # 0.01 10e3/ul Normal 0.00-0.03 [facility] Comment on above: Performed By: #### F T3, TSH, LIVER, BMP #### [facility] [address] [place] [address] Dr. Elvis Buenrostro IG % 0.1 % Normal 0.0-0.5 [facility] Comment on above: Performed By: #### F T3, TSH, LIVER, BMP #### [facility] [address] [place] [address] Dr. Elvis Buenrostro LYMPH # 1.6 103/ul Normal 1.2-3.8 [facility] Comment on above: Performed By: #### F T3, TSH, LIVER, BMP #### [facility] [address] [place] [address] Dr. Elvis Buenrostro Lymphocytes/100 WBC (Bld) 23.1 % Normal 20.5-60.0 [facility] Comment on above: Performed By: #### F T3, TSH, LIVER, BMP #### [facility] [address] [place] [address] Dr. Elvis Buenrostro MANUAL DIFF REQ NO Normal [facility] Comment on above: Performed By: #### F T3, TSH, LIVER, BMP #### [facility] [address] [place] [address] Dr. Elvis Buenrostro MCH (RBC) [Entitic mass] 30.4 pg Normal 26.7-34.0 [facility] Comment on above: Performed By: #### F T3, TSH, LIVER, BMP #### [facility] [address] [place] [address] Dr. Elvis Buenrostro MCHC (RBC) [Mass/Vol] 32.5 g/dL Normal 29.9-35.2 [facility] Comment on above: Performed By: #### F T3, TSH, LIVER, BMP #### [facility] [address] [place] [address] Dr. Elvis Buenrostro MCV (RBC) [Entitic vol] 93.4 fL Normal 81.0-99.0 [facility] Comment on above: Performed By: #### F T3, TSH, LIVER, BMP #### [facility] [address] [place] [address] Dr. Elvis Buenrostro MONO # 0.5 103/ul Normal 0.3-0.8 [facility] Comment on above: Performed By: #### F T3, TSH, LIVER, BMP #### [facility] [address] [place] [address] Dr. Elvis Buenrostro Monocytes/100 WBC (Bld) 6.4 % Normal 1.7-12.0 [facility] Comment on above: Performed By: #### F T3, TSH, LIVER, BMP #### [facility] [address] [place] [address] Dr. Elvis Buenrostro NEUT # 4.9 103/ul Normal 1.4-6.5 [facility] Comment on above: Performed By: #### F T3, TSH, LIVER, BMP #### [facility] [address] [place] [address] Dr. Elvis Buenrostro Neutrophils/100 WBC (Bld) 68.8 % Normal 43.0-75.0 [facility] Comment on above: Performed By: #### F T3, TSH, LIVER, BMP #### [facility] [address] [place] [address] Dr. Elvis Buenrostro Platelet mean volume (Bld) [Entitic vol] 10.8 fL Normal 9.5-13.5 [facility] Comment on above: Performed By: #### F T3, TSH, LIVER, BMP #### [facility] [address] [place] [address] Dr. Elvis Buenrostro PLT 225 103/ul Normal 150-450 [facility] Comment on above: Performed By: #### F T3, TSH, LIVER, BMP #### [facility] [address] [place] [address] [address] Elvis Buenrostro RBC 4.71 106/ul Normal 4.20-5.40 [facility] Comment on above: Performed By: #### F T3, TSH, LIVER, BMP #### [facility] [address] [place] [address] Dr. Elvis Buenrostro WBC 7.1 103/ul Normal 4.0-11.0 [facility] Comment on above: Performed By: #### F T3, TSH, LIVER, BMP #### [facility] [address] [place] [address] Dr. Elvis Buenrostro LIVER PROFILEon 06-26-2021 Albumin [Mass/Vol] 3.9 g/dL Normal 3.4-5.0 [facility] Comment on above: Performed By: #### L IVER #### [facility] [address] [place] [address] Dr. Elvis Buenrostro Albumin/Globulin [Mass ratio] 1.3 {ratio} Normal [facility] Comment on above: Performed By: #### L IVER #### [facility] [address] [place] [address] Dr. Elvis Buenrostro ALP [Catalytic activity/Vol] 66 U/L Normal 46-116 [facility] Comment on above: Performed By: #### L IVER #### [facility] [address] [place] [address] Dr. Elvis Buenrostro ALT [Catalytic activity/Vol] 18 U/L Normal 14-59 [facility] Comment on above: Performed By: #### L IVER #### [facility] [address] [place], [place] [id number] Dr. Elvis Buenrostro AST [Catalytic activity/Vol] 14 U/L Critically low 15-37 [facility] Comment on above: Performed By: #### L IVER #### [facility] [address] [place] [address] [address] Elvis Buenrostro BILI, CONJUGATED 0.1 mg/dL Normal 0.0-0.3 [facility] Comment on above: Performed By: #### L IVER #### [facility] [address] [place] [address] [address] Elvis Buenrostro Bilirubin [Mass/Vol] 0.3 mg/dL Normal 0.2-1.3 [facility] Comment on above: Performed By: #### L IVER #### [facility] [address] [place] [address] Dr. Elvis Buenrostro Globulin (S) [Mass/Vol] 3.0 g/dL Normal [facility] Comment on above: Performed By: #### L IVER #### [facility] [address] [place] [address] Dr. Elvis Buenrostro Protein [Mass/Vol] 6.9 g/dL Normal 6.1-8.2 [facility] Comment on above: Performed By: #### L IVER #### [facility] [address] [place] [address] Dr. Elvis Buenrostro XR LSPINE 2_3 VIEWSon 2021 XR LSPINE 2_3 VIEWS EXAM: XR LSPINE 2_3 VIEWS HISTORY: Pain after fall on ice COMPARISON: Sacral and coccyx x-rays of same day. Lumbar spine x-ray 06/06/2020. TECHNIQUE: 2 views FINDINGS: Status post L5-S1 posterior instrumentation. Internal hardware is unremarkable. Maintenance of the normal lumbar lordosis. Limbus deformity at L3, normal anatomic variant. Vertebral body heights and alignments exhibit no fracture or listhesis. The nonoperative intervertebral disc space heights are unremarkable IMPRESSION: Postoperative with no visualized acute abnormalities. Electronically authenticated by: DILLON MARIN Date: 2021-05-19 22:45 Normal [facility] XR SACRUM_COCCYXon 2 XR SACRUM_COCCYX EXAM: XR SACRUM_COCCYX, XR SACROILIAC JOINT 3 VIEWS HISTORY: Disorder of sacrum COMPARISON: None. TECHNIQUE: 3 views of the sacroiliac joints and 3 views of the sacrum and coccyx FINDINGS: Patient is status post internal fixation of the right sacroiliac joint. The inferior component is normal. The left sacroiliac joint is normal. Lumbosacral hardware exhibits no acute abnormalities. The osseous structures exhibit no acute fracture, dislocation or subluxation. Old posttraumatic changes of the right ischial tuberosity. The hip joints and pubic symphysis are normal. IMPRESSION: Postoperative changes with no visualized acute abnormality. Electronically authenticated by: DILLON MARIN Date: 2021-05-19 20:10 Normal [facility] CBC AUTO DIFFon 05-09-2021 BASO # 0.0 103/ul Normal 0.0-0.1 [facility] Comment on above: Performed By: #### C BC #### [facility] [address] [place] [address] Dr. Elvis Buenrostro Basophils/100 WBC (Bld) 0.6 % Normal 0.2-2.0 [facility] Comment on above: Performed By: #### C BC #### [facility] [address] [place] [address] Dr. Elvis Buenrostro EO # 0.1 103/ul Normal 0.0-0.7 [facility] Comment on above: Performed By: #### C BC #### [facility] [address] [place] [address] [address] Elvis Buenrostro Eosinophils/100 WBC (Bld) 2.1 % Normal 0.9-7.0 [facility] Comment on above: Performed By: #### C BC #### [facility] [address] [place] [address] Dr. Elvis Buenrostro Erythrocyte distribution width (RBC) [Ratio] 12.2 % Normal 11.0-15.0 [facility] Comment on above: Performed By: #### C BC #### [facility] [address] [place] [address] Dr. Elvis Buenrostro Hematocrit (Bld) [Volume fraction] 46.7 % Normal 36.0-48.0 [facility] Comment on above: Performed By: #### C BC #### [facility] [address] [address] [address] Elvis Buenrostro Hemoglobin (Bld) [Mass/Vol] 15.0 g/dL Normal 12.0-16.0 [facility] Comment on above: Performed By: #### C BC #### [facility] [address] [place] [address] Dr. Elvis Buenrostro IG # 0.01 10e3/ul Normal 0.00-0.03 [facility] Comment on above: Performed By: #### C BC #### [facility] [address] [place] [address] Dr. Elvis Buenrostro IG % 0.2 % Normal 0.0-0.5 [facility] Comment on above: Performed By: #### C BC #### [facility] [address] [place] [address] Dr. Elvis Buenrostro LYMPH # 1.4 103/ul Normal 1.2-3.8 [facility] Comment on above: Performed By: #### C BC #### [facility] [address] [place] [address] Dr. Elvis Buenrostro Lymphocytes/100 WBC (Bld) 26.8 % Normal 20.5-60.0 [facility] Comment on above: Performed By: #### C BC #### [facility] [address] [place] [address] Dr. Elvis Buenrostro MANUAL DIFF REQ NO Normal [facility] Comment on above: Performed By: #### C BC #### [facility] [address] [place] [address] Dr. Elvis Buenrostro MCH (RBC) [Entitic mass] 30.1 pg Normal 26.7-34.0 [facility] Comment on above: Performed By: #### C BC #### [facility] [address] [place] [address] Dr. Elvis Buenrostro MCHC (RBC) [Mass/Vol] 32.1 g/dL Normal 29.9-35.2 [facility] Comment on above: Performed By: #### C BC #### [facility] [address] [address] [address] Elvis Buenrostro MCV (RBC) [Entitic vol] 93.6 fL Normal 81.0-99.0 [facility] Comment on above: Performed By: #### C BC #### [facility] [address] [address] [address] Elvis Buenrostro MONO # 0.5 103/ul Normal 0.3-0.8 [facility] Comment on above: Performed By: #### C BC #### [facility] [address] [address] [address] Elvis Buenrostro Monocytes/100 WBC (Bld) 10.2 % Normal 1.7-12.0 [facility] Comment on above: Performed By: #### C BC #### [facility] [address] [place] [address] Dr. Elvis Buenrostro NEUT # 3.1 103/ul Normal 1.4-6.5 [facility] Comment on above: Performed By: #### C BC #### [facility] [address] [place] [address] Dr. Elvis Buenrostro Neutrophils/100 WBC (Bld) 60.1 % Normal 43.0-75.0 [facility] Comment on above: Performed By: #### C BC #### [facility] [address] [place] [address] Dr. Elvis Buenrostro Platelet mean volume (Bld) [Entitic vol] 11.1 fL Normal 9.5-13.5 [facility] Comment on above: Performed By: #### C BC #### [facility] [address] [place] [address] Dr. Elvis Buenrostro PLT 238 103/ul Normal 150-450 [facility] Comment on above: Performed By: #### C BC #### [facility] [address] [place] [address] Dr. Elvis Buenrostro RBC 4.99 106/ul Normal 4.20-5.40 [facility] Comment on above: Performed By: #### C BC #### [facility] [address] [place] [address] Dr. Elvis Buenrostro WBC 5.2 103/ul Normal 4.0-11.0 [facility] Comment on above: Performed By: #### C BC #### [facility] [address] [place] [address] Dr. Elvis Buenrostro PROF 14(COMP METB)on 022 Albumin [Mass/Vol] 4.0 g/dL Normal 3.5-5.0 [facility] Comment on above: Performed By: #### C MP #### [facility] [address] [place] [address] Dr. Elvis Buenrostro Albumin/Globulin [Mass ratio] 1.2 {ratio} Normal [facility] Comment on above: Performed By: #### C MP #### [facility] [address] [place] [address] Dr. Elvis Buenrostro ALP [Catalytic activity/Vol] 72 U/L Normal 38-126 [facility] Comment on above: Performed By: #### C MP #### [facility] [address] [place] [address] Dr. Elvis Buenrostro ALT [Catalytic activity/Vol] 17 U/L Normal 9-52 [facility] Comment on above: Performed By: #### C MP #### [facility] [address] [place] [address] Dr. Elvis Buenrostro Anion gap [Moles/Vol] 11.6 mmol/L Normal [facility] Comment on above: Performed By: #### C MP #### [facility] [address] [place] [address] Dr. Elvis Buenrostro AST [Catalytic activity/Vol] 13 U/L Critically low 14-36 [facility] Comment on above: Performed By: #### C MP #### [facility] [address] [place] [address] Dr. Elvis Buenrostro Bilirubin [Mass/Vol] 0.4 mg/dL Normal 0.2-1.3 [facility] Comment on above: Performed By: #### C MP #### [facility] [address] [place] [address] Dr. Elvis Buenrostro Calcium [Mass/Vol] 9.1 mg/dL Normal 8.4-10.2 [facility] Comment on above: Performed By: #### C MP #### [facility] [address] [place] [address] Dr. Elvis Buenrostro Chloride [Moles/Vol] 103 mmol/L Normal 98-107 [facility] Comment on above: Performed By: #### C MP #### [facility] [address] [address] [address] Elvis Buenrostro CO2 [Moles/Vol] 27.6 mmol/L Normal 22.0-30.0 [facility] Comment on above: Performed By: #### C MP #### [facility] [address] [place] [address] Dr. Elvis Buenrostro Creatinine [Mass/Vol] 0.76 mg/dL Normal 0.52-1.04 [facility] Comment on above: Performed By: #### C MP #### [facility] [address] [place] [address] Dr. Elvis Buenrostro EGFR-AF [place] >60 Normal >=60 [facility] Comment on above: Performed By: #### C MP #### [facility] [address] [place] [address] Dr. Elvis Buenrostro EGFR-NON AF [place] >60 Normal >=60 [facility] Comment on above: Performed By: #### C MP #### [facility] [address] [place] [address] Dr. Elvis Buenrostro Globulin (S) [Mass/Vol] 3.4 g/dL Normal [facility] Comment on above: Performed By: #### C MP #### [facility] [address] [place] [address] Dr. Elvis Buenrostro Glucose [Mass/Vol] 89 mg/dL Normal 74-106 [facility] Comment on above: Performed By: #### C MP #### [facility] [address] [place] [address] Dr. Elvis Buenrostro Potassium [Moles/Vol] 4.2 mmol/L Normal 3.4-5.0 [facility] Comment on above: Performed By: #### C MP #### [facility] [address] [address] [address] Elvis Buenrostro Protein [Mass/Vol] 7.4 g/dL Normal 6.1-8.2 [facility] Comment on above: Performed By: #### C MP #### [facility] [address] [address] [address] Elvis Buenrostro Sodium [Moles/Vol] 138 mmol/L Normal 137-145 [facility] Comment on above: Performed By: #### C MP #### [facility] [address] [address] [address] Elvis Buenrostro Urea nitrogen [Mass/Vol] 12.0 mg/dL Normal 7.0-17.0 [facility] Comment on above: Performed By: #### C MP #### [facility] [address] [address] [address] Elvis Buenrostro Urea nitrogen/Creatinine [Mass ratio] 15.8 mg/mg Normal [facility] Comment on above: Performed By: #### C MP #### [facility] [address] [address] [address] Elvis Buenrostro HCG,Urineon 01-02-2021 Beta HCG ( test) Ql (U) Negative Normal [facility] Comment on above: Result Comment: PERF ORMED BY: [place] [address] PATHOLOGIST STATOR PLATE WASHER NABIL VILLA M.D. Performed By: #### U HCG #### [place] [address] [place] XR si jointson 01-02-2021 XR si joints [facility] [place] [address] [place] [address] XRay Report Signed Patient: Gissel Chapa MR#: [id number] 87 : 1985 Acct:[id number] Age/Sex: 35 / F ADM Date: 01/02/21 Loc: [place] Room: Type: [facility] Attending Dr: Kiet Clark MD Ordering Provider: Kiet Clark MD Date of Service: 01/02/21 XR/XR si joints: . Copies to: Kiet Clark MD XR si joints 01/02/2021 11:37 AM SIGNS AND SYMPTOMS: Right SI joint effusion PROTOCOL: Intraoperative tomographic views of the right hemipelvis COMPARISON: None FINDINGS: Intraoperative views demonstrate fusion hardware placement across the right sacroiliac joint. Number of images: 194 Fluoroscopic time: 2 minutes 10 seconds. XR/XR si joints IMPRESSION: Intraoperative views demonstrate fusion hardware placement across the right sacroiliac joint. Impression dictated by: Ernesto Mcgraw M.D.01/02/2021 12:46 PM Dictation Location: [place] [address] Transcribed By: [facility] 01/02/21 1246 Dictated By: Ernesto Mcgraw II, MD 01/02/21 1245 Signed By: 01/02/21 1246 Normal [facility] COVID-19 FRMCon 12-29-2020 SARS-CoV-2 (COVID-19) RNA USMAN+probe Ql (Unsp spec) Negative Normal Negative [facility] Comment on above: Order Comment: Healt hcare Worker?: N Result Comment: Testing for SARS-CoV-2 by RT-PCR This test was developed and its performance characteristics determined by [employer]) and validated at the [facility]. This test has not been FDA cleared or approved. This test has been authorized by FDA under an Emergency Use Authorization (EUA). This test has been validated in accordance with the FDA's Guidance Document (Policy for Diagnostics Testing in Laboratories Certified to Perform High Complexity Testing under CLIA prior to Emergency Use Authorization for Coronavirus Disease-2019 during the Public Health Emergency) issued on July 09, 2019. This test is only authorized for the duration of time the declaration that circumstances exist justifying the authorization of the emergency use of in vitro diagnostic tests for detection of SARS-CoV-2 virus and/or diagnosis of COVID-19 infection under section 564(b)(1) of the Act, 21 U.S.C. 360bbb-3(b)(1), unless the authorization is terminated or revoked sooner. PERFORMED BY: [place] [address] PATHOLOGIST STATOR PLATE WASHER NABIL VILLA M.D. Performed By: #### C OVID 19 [facility] #### [address] Basic Metabolic Panelon 12-07 Calcium [Mass/Vol] 9.0 mg/dL Normal 8.2-10.2 [facility] Comment on above: Result Comment: PERF ORMED BY: [place] [address] PATHOLOGIST STATOR PLATE WASHER NABIL VILLA M.D. Performed By: #### C BC, BMP #### [address] Chloride [Moles/Vol] 103 mmol/L Normal 95-114 [facility] Comment on above: Performed By: #### C BC, BMP #### [address] CO2 [Moles/Vol] 23.0 mmol/L Normal 22.0-30.0 [facility] Comment on above: Performed By: #### C BC, BMP #### [address] Creatinine [Mass/Vol] 0.96 mg/dL Normal 0.44-1.03 [facility] Comment on above: Performed By: #### C BC, BMP #### [address] Estimated GFR ( Phuong > 60 [facility] Comment on above: Result Comment: GFR estimated reference range: According to KDOQI guidelines, <60 ml/min/1.73m2 is sufficient to diagnose a patient with chronic kidney disease. Performed By: #### C BC, BMP #### [address] Estimated GFR (Non- Am > 60 Normal [facility] Comment on above: Performed By: #### C BC, BMP #### [place] [address] [place] Glucose [Mass/Vol] 83 mg/dL Normal 70-100 [facility] Comment on above: Result Comment: [place] Glucose Reference Range is dependent on time and content of last meal. Glucose of more than 200 mg/dL in a nonstressed, ambulatory subject supports the diagnosis of Diabetes Mellitus. ADA recommended reference range Performed By: #### C BC, BMP #### [facility] [address] [place] [address] [place] Potassium [Moles/Vol] 4.4 mmol/L Normal 3.5-5.1 [facility] Comment on above: Performed By: #### C BC, BMP #### [facility] [address] [place] [address] [place] Sodium [Moles/Vol] 136 mmol/L Normal 136-146 [facility] Comment on above: Performed By: #### C BC, BMP #### [facility] [address] [place] [address] [place] Urea nitrogen [Mass/Vol] 14 mg/dL Normal 9-23 [facility] Comment on above: Performed By: #### C BC, BMP #### [address] Complete Blood Count Auto Di ffon 12-20-2020 Basophils (Bld) [#/Vol] 0.0 10*3/uL Normal 0.0-0.2 [facility] Comment on above: Result Comment: PERF ORMED BY: [place] [address] PATHOLOGIST STATOR PLATE WASHER NABIL VILLA M.D. Performed By: #### C BC, BMP #### [place] [address] [place] Basophils/100 WBC (Bld) 0.5 % Normal . [facility] Comment on above: Performed By: #### C BC, BMP #### [place] [address] [place] Eosinophils (Bld) [#/Vol] 0.1 10*3/uL Normal 0.0-0.45 [facility] Comment on above: Performed By: #### C BC, BMP #### [facility] [address] Eosinophils/100 WBC (Bld) 2.0 % Normal . [facility] Comment on above: Performed By: #### C BC, BMP #### [facility] [address] Erythrocyte distribution width (RBC) [Ratio] 12.0 % Normal 11.9-15.3 [facility] Comment on above: Performed By: #### C BC, BMP #### [address] Hematocrit (Bld) [Volume fraction] 44.2 % Normal 34.0-46.4 [facility] Comment on above: Performed By: #### C BC, BMP #### [address] Hemoglobin (Bld) [Mass/Vol] 15.3 g/dL Normal 11.8-15.4 [facility] Comment on above: Performed By: #### C BC, BMP #### [address] Lymphocytes (Bld) [#/Vol] 1.5 10*3/uL Normal 1.00-4.8 [facility] Comment on above: Performed By: #### C BC, BMP #### [address] Lymphocytes/100 WBC (Bld) 24.2 % Normal . [facility] Comment on above: Performed By: #### C BC, BMP #### [place] [address] [place] MCH (RBC) [Entitic mass] 32.8 pg Normal 24.7-34.3 [facility] Comment on above: Performed By: #### C BC, BMP #### [address] MCV (RBC) [Entitic vol] 94.6 fL Normal 80-100 [facility] Comment on above: Performed By: #### C BC, BMP #### [address] [address] [place] Mean Corpuscular HGB Conc 34.7 g/dL Normal 32.0-35.0 [facility] Comment on above: Performed By: #### C BC, BMP #### [facility] [address] Monocytes (Bld) [#/Vol] 0.5 10*3/uL Normal 0.0-0.8 [facility] Comment on above: Performed By: #### C BC, BMP #### [facility] [address] Monocytes/100 WBC (Bld) 8.6 % Normal . [facility] Comment on above: Performed By: #### C BC, BMP #### [address] Neutrophils (Bld) [#/Vol] 3.9 10*3/uL Normal 1.8-7.7 [facility] Comment on above: Performed By: #### C BC, BMP #### [address] Neutrophils/100 WBC (Bld) 64.7 % Normal . [facility] Comment on above: Performed By: #### C BC, BMP #### [address] Nucleated RBC/100 WBC (Bld) [Ratio] 0.1 % Normal 0-0.5 [facility] Comment on above: Performed By: #### C BC, BMP #### [address] Platelet mean volume (Bld) [Entitic vol] 9.4 fL Normal 6.3-10.7 [facility] Comment on above: Performed By: #### C BC, BMP #### [place] [address] [place] Platelets (Bld) [#/Vol] 213 10*3/uL Normal 150-450 [facility] Comment on above: Performed By: #### C BC, BMP #### [place] [address] [place] RBC (Bld) [#/Vol] 4.67 10*6/uL Normal 3.60-5.00 [facility] Comment on above: Performed By: #### C BC, BMP #### [facility] [address] WBC (Bld) [#/Vol] 6.0 10*3/uL Normal 4.5-11.0 [facility] Comment on above: Performed By: #### C BC, BMP #### [facility] [address] ECG 12 lead ECGon 12-20-2020 ECG 12 lead ECG [facility] [place] [address] Electrocardiograph Report Signed Patient: Gissel Chapa MR#: [id number] 87 : 1985 Acct:[id number] Age/Sex: 35 / F ADM Date: 12/20/20 Loc: Room: Type: [facility] Attending Dr: Kiet Clark MD Ordering Provider: Kiet Clark MD Date of Service: 12/20/20 ECG/ECG 12 lead ECG: surgery 01-02-2021 Copies to: Test Reason : Blood Pressure : / mmHG Vent. Rate : 070 BPM Atrial Rate : 070 BPM P-R Int : 132 ms QRS Dur : 094 ms QT Int : 392 ms P-R-T Axes : 067 070 060 degrees QTc Int : 423 ms Normal sinus rhythm Normal ECG When compared with ECG of 09-JAN-2015 07:44, No significant change was found Confirmed by NEGRA GONZALEZ MD ([id number]) on 12/20/2020 12:08:53 PM Referred By: EDUARDO Electronically Signed By:NEGRA GONZALEZ MD Transcribed By: ARIES Signed By Negra Gonzalez MD 0 12/20/20 1208 Normal [facility] CT pelvis w conon 09-21-2020 CT pelvis w con [facility] [place] [address] CT Scan Report Signed Patient: Gissel Chapa MR#: [id number] 87 : 1985 Acct:[id number] Age/Sex: 34 / F ADM Date: 09/21/20 Loc: Room: Type: [facility] Attending Dr: Mata Maria MD Ordering Provider: Mata Maria MD Date of Service: 09/21/20 CT/CT pelvis w con: Sacroiliitis Copies to: Mata Maria MD CT pelvis w con 09/21/2020 12:02 PM SIGNS AND SYMPTOMS: Sacroiliitis, right-sided sacroiliac joint pain TECHNIQUE: Multidetector CT axial slices of the pelvis without IV contrast. Multiplanar reformats were performed and viewed on a separate workstation and reviewed to further define anatomy and possible pathology. CT was performed with one or more of the following dose reduction techniques: Automated exposure control, adjustment of the mA and/or kV according to patient size, or use of iterative reconstruction technique. COMPARISON: None. FINDINGS: There is posterior fusion hardware at L5-S1 without evidence of hardware complication. There is mild disc height loss at L5-S1. Disc degenerative changes are partly visualized at L3-L4 and L4-L5. Mild degenerative changes are noted in the sacroiliac joints. There is contrast within the right sacroiliac joint and right gluteal musculature consistent with a history of recent SI joint injection. The joint spaces of the hips are preserved. There is extensive heterotopic ossification along the initial tuberosity suggesting prior hamstrings avulsion. The visualized pelvic viscera are within normal limits. CT/CT pelvis w con IMPRESSION: No acute bony injury. Evidence of prior right-sided sacroiliac joint injection. There is heterotopic ossification at the initial tuberosity on the right suggesting prior right- sided hamstrings avulsion. Posterior fusion hardware is noted in the lower lumbar spine at the L5-S1 level with partial visualization of disc degenerative changes at L3-L4 and L4-L5. Impression dictated by: Ernesto Mcgraw M.D.09/21/2020 3:18 PM Dictation Location: [place] [address] Transcribed By: [facility] 09/21/20 1518 Dictated By: Ernesto Mcgraw II, MD 09/21/20 1512 Signed By: 09/21/20 1518 Normal [facility] HCG ( test) Leanne d Ql (U)on 09-21-2020 HCG ( test) Ql (U) Negative [facility] HCG,Urineon 09-21-2020 Beta HCG ( test) Ql (U) Negative Normal [facility] Comment on above: Result Comment: PERF ORMED BY: [facility] [address] [place] [id number] PATHOLOGIST STATOR PLATE WASHER NABIL VILLA M.D. Performed By: #### U HCG #### [facility] [address] [place], [place] [id number] [facility] CT LUMBAR SPINE WO CONTRASTo n 05-19-2020 CT LUMBAR SPINE WO CONTRAST [facility] Department of Radiology [address] [place] [address] Patient Name: GISSEL CHAPA : 1985 Sex: F Age: Race: White Pt. Location: Patient Status: O Ordered Date: 05/04/2020 11:00:00 AM Completed Date: 05/19/2020 08:37 AM Requesting Provider: SIMONA MEDRANO Attending Provider: SIMONA MEDRANO Report Copy To: Signs & Symptoms: M43.06 Spondylolysis, lumbar region I10 History: Talisha [employer] auth# [id number] 05/09/20-06/07/20 cpt code 90102 *mla Comments: Exam: CT LUMBAR SPINE WO CONTRAST CT LUMBAR SPINE WO CONTRAST 05/19/2020 8:37 AM CLINICAL INDICATIONS:M43.06 Spondylolysis, lumbar region I10 TECHNOLOGIST COMMENTS: fusion 8 yrs ago now has rt leg and rt si jt pain QUESTION FOR RADIOLOGIST: PROTOCOL: Axial CT images of the spine were obtained without IV contrast. TECHNIQUE: Multi detector CT axial slices of the lumbar spine are obtained from the T11 to the sacrococcygeal vertebral body without IV contrast. Volumetric acquisition sagittal, coronal, and 3-D reconstructions were performed and reviewed on a separate workstation. All CT scans at this facility use dose modulation, iterative reconstruction, and/or weight based dosing when appropriate to reduce radiation dose to as low as reasonably achievable. COMPARISON: Lumbar spine radiograph dated May 04, 2020. FINDINGS: The hardware at the L5-S1 level. Beam hardening artifact that compromises detail.Facet disease in the lower lumbar spine. Osseous fragments around the fusion may in part relate to bone graft material. No loss of vertebral body height. There is lucency surrounding the superior aspect of the right vertical rods. This may be related to some degree of motion. The remainder of the hardware demonstrates no significant abnormality. Some lucency around the superior bita on the left is identified. There is a corner fracture or limbus vertebrae which is a normal variation involving anterior superior margin of L3. . There is no obvious bony central canal stenosis. The neural foramina demonstrate no definitive stenosis. 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 This is likely chronic No paraspinous mass or fluid collection. There are a few scattered Schmorl's IMPRESSION: No acute findings. Hardware fusion demonstrate some lucency around the superior aspect of the right vertebral bita. This may relate to motion at this level. Bone graft material surrounds this area. Osseous fusion is not yet mature. Dr. hernandez Electronically signed: Alexy Mcdaniel. Transcribed by: [email or web address], User Resident: Electronically Signed by: ALEXY MCDANIEL @ 05/19/2020 03:07 PM Normal [facility] LUMBAR SPINE 4 OR 5 [facility] LUMBAR SPINE 4 OR 5 [facility] Department of Radiology [address] [place] [address] Patient Name: GISSEL CHAPA : 1985 Sex: F Age: Race: NA Pt. Location: Patient Status: O Ordered Date: 05/04/2020 10:10:00 AM Completed Date: 05/04/2020 10:27 AM Requesting Provider: SIMONA MEDRANO Attending Provider: MAGALIE COLVIN Report Copy To: Signs & Symptoms: M54.5 Low back pain I10 History: Talisha Comments: Evaluate Exam: LUMBAR SPINE 4 OR 5 [facility] LUMBAR SPINE 4 OR 5 [facility] 05/04/2020 10:27 AM CLINICAL INDICATIONS: M54.5 Low back pain I10 TECHNOLOGIST COMMENTS: low back pain and into rt buttock surgery 12 yrs ago QUESTION FOR RADIOLOGIST: Evaluate PROTOCOL: AP,Lateral,L5-S1 spot,Flexion and Extension views were obtained. COMPARISON: None. FINDINGS: The vertebral body heights are maintained. Transpedicular spinal fusion L5-S1. Maintain normal alignment. No instability and limited range of motion flexion and extension views. Loss of intervertebral disc space height L4-5. Mild hypertrophic changes in the posterior elements. IMPRESSION: Degenerative changes. No instability and limited range of motion in flexion and extension views. L5-S1 fusion in satisfactory. Electronically signed: Dean Lala M.D.. Transcribed by: [email or web address], User Resident: Electronically Signed by: DEAN LALA @ 05/04/2020 06:21 PM Normal [facility] Comment on above: Order Comment: Evalu ate Vital Signs Date Time Vital Sign Value Performing Clinician Facility 07-13-2024 15:20-0400 Body mass index (BMI) [Ratio] 21.8 kg/m2 Adrian Saundra DO Work Phone: [facility] 07-13-2024 15:20-0400 Body weight 56.7 kg Adrian Saundra DO Work Phone: [facility] 07-13-2024 15:20-0400 Diastolic blood pressure 70 mm[Hg] Adrian Saundra DO Work Phone: [facility] 07-13-2024 15:20-0400 Systolic blood pressure 108 mm[Hg] Adrian Saundra DO Work Phone: [facility] 02-17-2024 15:20-0500 Body height 160.02 cm [facility] 02-17-2024 15:20-0500 Body mass index (BMI) [Ratio] 23 kg/m2 [facility] 02-17-2024 15:20-0500 Body temperature 99.2 [degF] [facility] 02-17-2024 15:20-0500 Body weight 58.96 kg [facility] 02-17-2024 15:20-0500 Diastolic blood pressure 75 mm[Hg] [facility] 02-17-2024 15:20-0500 Heart rate 120 /min [facility] 02-17-2024 15:20-0500 Respiratory rate 18 /min [facility] 02-17-2024 15:20-0500 SaO2% (BldA) [Mass fraction] 96 % [facility] 02-17-2024 15:20-0500 Systolic blood pressure 115 mm[Hg] [facility] 02-13-2024 15:29-0500 Body height 161.3 cm Federico Mckeon DPM Work Phone: [facility] 02-13-2024 15:29-0500 Body mass index (BMI) [Ratio] 22.84 kg/m2 Federico Mckeon DPM Work Phone: [facility] 02-13-2024 15:29-0500 Body weight 59.42 kg Federico Mckeon DPM Work Phone: [facility] 02-13-2024 15:29-0500 Diastolic blood pressure 75 mm[Hg] Federico Mckeon DPM Work Phone: [facility] 02-13-2024 15:29-0500 Heart rate 81 /min Federico Mckeon DPM Work Phone: [facility] 02-13-2024 15:29-0500 Systolic blood pressure 123 mm[Hg] Federico Mckeon DPM Work Phone: [facility] 01-30-2024 16:35-0400 Body height 161.3 cm Federico Mike DPM Work Phone: [facility] 01-30-2024 16:35-0400 Body mass index (BMI) [Ratio] 22.84 kg/m2 Federico Mckeon DPM Work Phone: [facility] 01-30-2024 16:35-0400 Body weight 59.42 kg Federico Mckeon DPM Work Phone: [facility] 01-30-2024 16:35-0400 Diastolic blood pressure 78 mm[Hg] Federico Mckeon DPM Work Phone: [facility] 01-30-2024 16:35-0400 Heart rate 82 /min Federico Mckeon DPM Work Phone: [facility] 01-30-2024 16:35-0400 Systolic blood pressure 126 mm[Hg] Federicochinyere Mckeon DPM Work Phone: [facility] 01-14-2024 16:53-0400 Body height 161.3 cm Federico Mike DPM Work Phone: [facility] 01-14-2024 16:53-0400 Body mass index (BMI) [Ratio] 22.84 kg/m2 Federico Brown DPM Work Phone: [facility] 01-14-2024 16:53-0400 Body weight 59.42 kg Federico Mckeon DPM Work Phone: [facility] 01-14-2024 16:53-0400 Respiratory rate 18 /min Federico Mckeon DPM Work Phone: [facility] 12-11-2023 15:49-0400 Body mass index (BMI) [Ratio] 22.98 kg/m2 Bhakti Aichholz [employer] M[employer] WORK[employer] Work Phone: [facility] 12-11-2023 15:49-0400 Body temperature 98.4 [degF] Bhakti Aichholz HOME MISSION WORKER Work Phone: [facility] 12-11-2023 15:49-0400 Body weight 59.78 kg Bhakti Aichholz HOME MISSION WORKER Work Phone: [facility] 12-11-2023 15:49-0400 Diastolic blood pressure 80 mm[Hg] Bhakti Aichholz HOME MISSION WORKER Work Phone: [facility] 12-11-2023 15:49-0400 Heart rate 105 /min Bhakti Aichholz HOME MISSION WORKER Work Phone: [facility] 12-11-2023 15:49-0400 Respiratory rate 18 /min Bhakti Aichholz HOME M[employer] WORKER Work Phone: [facility] 12-11-2023 15:49-0400 SaO2% (BldA) [Mass fraction] 95 % Bhakti Aichholz [employer] M[employer] WORKER Work Phone: [facility] 12-11-2023 15:49-0400 Systolic blood pressure 124 mm[Hg] Bhakti Aichholz HOME MISSION WORKER Work Phone: [facility] 09-11-2023 08:23-0400 Diastolic blood pressure 72 mm[Hg] Anthony Verhoff PA-C Work Phone: [facility] 09-11-2023 08:23-0400 Heart rate 99 /min Anthony Verhoff PA-C Work Phone: [email or web address] 09-11-2023 08:23-0400 Respiratory rate 20 /min Anthony Epperson PA-C Work Phone: [email or web address] 09-11-2023 08:23-0400 Systolic blood pressure 113 mm[Hg] Anthony Epperson PA-C Work Phone: [email or web address] 06-29-2021 16:20-0400 Body height Kiet Clark Other [facility] Other 06-29-2021 16:20-0400 Body mass index (BMI) [Ratio] 22.32 kg/m2 Kiet Clark Other [facility] Other 06-29-2021 16:20-0400 Body weight 57.15 kg Kiet Clark Other [facility] Other 03-30-2021 12:00-0500 Body height Kiet Clark Other [facility] Other 03-30-2021 12:00-0500 Body mass index (BMI) [Ratio] 22.32 kg/m2 Kiet Clark Other [facility] Other 03-30-2021 12:00-0500 Body weight 57.15 kg Kiet Clark Other [facility] Other 02-02-2021 14:00-0400 Body height Kiet Clark Other [facility] Other 02-02-2021 14:00-0400 Body mass index (BMI) [Ratio] 22.32 kg/m2 Kiet Clark Other [facility] Other 02-02-2021 14:00-0400 Body weight 57.15 kg Kiet Clark Other [facility] Other 09-21-2020 11:48-0400 Diastolic blood pressure 90 mm[Hg] Mata Maria Work Phone: [facility] 09-21-2020 11:48-0400 Heart rate 93 /min Mata Maria Work Phone: [facility] 09-21-2020 11:48-0400 Respiratory rate 18 /min Mata Maria Work Phone: [facility] 09-21-2020 11:48-0400 SaO2% (BldA) [Mass fraction] 92 % Mata Maria Work Phone: [facility] 09-21-2020 11:48-0400 Systolic blood pressure 134 mm[Hg] Mata Maria Work Phone: [facility] 09-21-2020 10:13-0400 Body height 160.02 cm Mata Maria Work Phone: [facility] 09-21-2020 10:13-0400 Body mass index (BMI) [Ratio] 22.4 kg/m2 Mata Maria Work Phone: [facility] 09-21-2020 10:13-0400 Body weight 57.42 kg Mata Maria Work Phone: [facility] Encounters Encounter Date Encounter Type Care Provider Facility Start: 08-17-2024 End: 08-17-2024 Bamboo flowsheet Adrian Saundra DO Work Phone: [facility] Start: 08-17-2024 End: 08-17-2024 Bamboo flowsheet Adrian Saundra DO Work Phone: [facility] Start: 07-22-2024 End: 07-22-[address] [facility] Start: 07-13-2024 End: 07-13-2024 Office outpatient visit 15 minutes Adrian Saundra DO Work Phone: [facility] Comment on above: Uterine prolapse; Rectocele Start: 07-13-2024 End: 07-13-2024 ambulatory ADRIAN SAUNDRA Not Available Start: 07-13-2024 End: 07-13-2024 Bamboo flowsheet Adrian Saundra DO Work Phone: [facility] Start: 07-13-2024 End: 07-13-2024 Bamboo flowsheet Adrian Saundra DO Work Phone: [facility] Start: 06-17-2024 End: 06-17-2024 ambulatory [facility] Start: 06-10-2024 End: 06-10-2024 ambulatory [facility] Start: 05-14-2024 End: 05-14-2024 ambulatory [facility] Start: 04-14-2024 End: 04-14-2024 ambulatory [facility] Start: 04-13-2024 End: 04-13-2024 ambulatory ERNESTO [facility] Start: 03-01-2024 End: 03-02-2024 Refill Bhakti Talavera NP Work Phone: [facility] Comment on above: Migraine without aur a, not intractable, without status migrainosus (CMS/HCC) Sesamoiditis of left foot Start: 02-17-2024 End: 02-17-2024 ambulatory [facility] Work Phone: Start: 02-17-2024 End: 02-17-2024 Patient encounter procedure [facility] Surjit Work Phone: Start: 02-17-2024 End: 02-17-2024 ambulatory ERNESTO [facility] Start: 02-13-2024 End: 02-13-2024 ambulatory FEDERICO MCKEON Not Available Start: 02-13-2024 End: 02-13-2024 Office outpatient visit 15 minutes Federico Mckeon DPM Work Phone: [facility] Comment on above: Sesamoiditis of left foot (Primary Dx); Capsulitis of metatarsophalangeal (MTP) joint of left foot; Metatarsalgia, left foot Start: 02-13-2024 End: 02-13-2024 Bamboo flowsheet Federico Mckeon DPM Work Phone: [facility] Start: 02-13-2024 End: 02-13-2024 Bamboo flowsheet Federico Lennon Brown DPM Work Phone: [facility] Start: 02-05-2024 End: 02-05-2024 ambulatory BHAKTI TALAVERA Not Available Start: 01-30-2024 End: 01-30-2024 Office outpatient visit 15 minutes Federico Mckeon DPM Work Phone: [facility] Comment on above: Metatarsalgia, left foot (Primary Dx); Capsulitis of metatarsophalangeal (MTP) joint of left foot; Sesamoiditis of left foot Start: 01-30-2024 End: 01-31-2024 Refill Bhakti Talavera [employer] Work Phone: [facility] Comment on above: Chronic migraine wit hout aura without status migrainosus, not intractable (CMS/HCC) (Primary Dx); Migraine without aura, not intractable, without status migrainosus (CMS/HCC); Migraine without aura (CMS/HCC); Nausea Start: 01-15-2024 End: 01-15-2024 Telephone encounter Federico Mckeon DPM Work Phone: [facility] Comment on above: Med Refill Start: 01-14-2024 End: 01-14-2024 Office outpatient new 30 minutes Federico Mckeon DPM Work Phone: [facility] Comment on above: Sesamoiditis of left foot (Primary Dx); Left foot pain; Capsulitis of metatarsophalangeal (MTP) joint of left foot; Metatarsalgia, left foot Start: 01-14-2024 End: 01-14-2024 ambulatory FEDERICO MCKEON Not Available Start: 01-14-2024 End: 01-14-2024 Bamboo flowsheet Federico Citlalli Mike DPM Work Phone: [facility] Start: 01-14-2024 End: 01-14-2024 Bamboo flowsheet Federico A Mike DPM Work Phone: [facility] Start: 01-06-2024 End: 01-06-[address] [facility] Start: 12-27-2023 End: 12-27-2023 ambulatory CALEB V[facility]quez [facility] Start: 12-24-2023 End: 12-24-2023 Orders Only Bhakti Talavera [employer] Work Phone: [facility] Comment on above: Left foot pain (Prim ron Dx) Start: 12-18-2023 End: 12-18-2023 [facility] Start: 12-18-2023 Encounter for genera l adult medical examination without abnormal findings [facility] Start: 12-18-2023 End: 12-18-2023 External Result Encounter Bhakti Talavera [employer] Work Phone: [facility] Unsolicited Start: 12-18-2023 End: 12-18-2023 External Result Encounter Bhakti Talavera [employer] Work Phone: [facility] Unsolicited Start: 12-14-2023 End: 12-16-2023 Refill Bhakti Talavera [employer] Work Phone: [facility] Comment on above: Other muscle spasm; Spasm of muscle Start: 12-11-2023 End: 12-11-2023 Office outpatient visit 15 minutes Bhakti Talavera [employer] Work Phone: [facility] Comment on above: Left foot pain (Prim ron Dx) Start: 12-11-2023 End: 12-11-2023 ambulatory BHAKTI TALAVERA Not Available Start: 12-11-2023 End: 12-11-2023 Bamboo flowsheet Bhakti Sadaf [employer] Work Phone: [facility] Start: 12-11-2023 End: 12-11-2023 Bamboo flowsheet Bhakti Sadaf [employer] Work Phone: [facility] Start: 11-27-2023 End: 11-27-2023 ambulatory [facility] Start: 10-30-2023 End: 10-30-[address] [facility] Start: 09-26-2023 End: 09-26-2023 ambulatory [facility] Start: 09-26-2023 End: 09-26-2023 ambulatory HALLIE MCGOVERN Not Available Start: 09-11-2023 End: 09-11-2023 ambulatory [facility] Start: 09-11-2023 End: 09-11-2023 Office outpatient visit 25 minutes [facility] PA-C Work Phone: [facility] Comment on above: Cervical radiculopat hy (Primary Dx); Cervical spine pain Start: 09-10-2023 End: 09-10-2023 ambulatory CALEB Vázquez [facility] Start: 08-16-2023 End: 08-16-2023 ambulatory ERNESTO [facility] Start: 03-20-2023 Patient encounter status Bhakti Sadaf [employer] Work Phone: [facility] Start: 12-18-2021 End: 12-18-2021 ambulatory ECOLOGICAL ECONOMIST BHAKTI SADAF Facility:[facility] Start: 09-28-2021 End: 09-29-2021 ambulatory ECOLOGICAL ECONOMIST BHAKTI SADAF Facility:[facility] Start: 08-24-2021 End: 08-25-2021 ambulatory ECOLOGICAL ECONOMIST BHAKTI SADAF Facility:[facility] Start: 06-29-2021 End: 06-29-2021 ambulatory Kiet Clark Other [facility] Other Start: 06-29-2021 Office outpatient vi sit 15 minutes Kiet Clark [facility] Start: 06-26-2021 End: 06-27-2021 ambulatory ECOLOGICAL ECONOMIST BHAKTI SADAF Facility:[facility] Start: 05-19-2021 End: 05-20-2021 ambulatory ECOLOGICAL ECONOMIST BHAKTI AICHAMARILIS Facility:[facility] Start: 05-09-2021 End: 05-10-2021 ambulatory ECOLOGICAL ECONOMIST BHAKTI SADAF Facility:[facility] Start: 05-02-2021 End: 05-03-[address] DILLON RAYO Facility:[facility] Start: 03-30-2021 End: 03-30-2021 ambulatory Kiet Clark Other [facility] Other Start: 03-30-2021 Postop follow up vis it related to original px Kiet Clark [facility] Start: 02-02-2021 End: 02-02-2021 ambulatory Kiet Clark Other [facility] Other Start: 02-02-2021 Postop follow up vis it related to original px Kiet Clark [facility] Start: 09-21-2020 End: 09-21-2020 Admission to same day surgery center Mata Maria Work Phone: [facility] Start: 05-19-2020 End: 05-20-2020 ambulatory SIMONA MEDRANO Facility:[facility] Procedures Date Procedure Procedure Detail Performing Clinician Start: 02-17-2024 Quick Strep (POC) Start: 12-18-2023 Complete blood count with white cell differential, automated Bhakti Talavera [employer] Work Phone: Start: 08-16-2023 Follow-up visit Follow-up ERNESTO MENJIVAR Start: 09-21-2020 Injection of local anesthetic into sacroiliac joint Mata Maria Work Phone: Plan of Treatment Date Care Activity Detail Author Start: 09-10-2024 Tobacco Screening Tobacco Screening [facility] Start: 08-17-2024 End: 08-17-2024 Patient encounter procedure [facility] Comment on above: Arrived Start: 07-13-2024 End: 07-13-2024 Patient encounter procedure 07/13/2024 2:50 PM EDT Office Visit [facility] [address] [address] Adrian Arguello, [address] [place] [address] Arrived [facility] Comment on above: Arrived Start: 02-13-2024 End: 02-13-2024 Patient encounter procedure 02/13/2024 3:10 PM EST Office Visit [facility] [address] [place] [address] Federico Mckeon DPM [address] [address] [facility] Start: 01-31-2024 End: 01-31-2024 Professional / ancillary services management 01/31/2024 8:00 AM EDT Ancillary Procedure [facility] [address] [place] [address] Arrived [facility] Comment on above: Arrived Start: 01-30-2024 End: 01-30-2024 Clinical Support 01/30/2024 4:20 PM EDT Clinical Support [facility] [address] [facility] [address] [place] [address] Federico Mckeon DPM [address] [address] [facility] Start: 01-14-2024 End: 01-14-2024 Patient encounter procedure 01/14/2024 4:40 PM EDT Office Visit [facility] [address] [place] [address] Federico Mckeon DPM [address] [address] Left foot pain [facility] Comment on above: Left foot pain Start: 12-11-2023 End: 12-11-2023 Patient encounter procedure 12/11/2023 3:40 PM EDT Office Visit [facility] [address] [place] [address] Bhakti Talavera, SARWAT [address] [place] [address] Arrived [facility] Comment on above: Arrived Start: 12-11-2023 End: 12-10-2024 Urate [Mass/volume] in Serum or Plasma Uric acid Lab Routine Left foot pain Expected: 12/11/2023 (Approximate), Expires: 12/10/2024 [facility] Comment on above: Expected: 12/11/2023 (Approximate), Expires: 12/10/2024 Start: 12-11-2023 End: 12-10-2024 XR Foot - left 3 Views XR foot 3+ views left Imaging Routine Left foot pain Expected: 12/11/2023, Expires: 12/10/2024 [facility] Work Phone: Comment on above: Expected: 12/11/2023 , Expires: 12/10/2024 Start: 12-08-2023 Influenza vaccination [facility] Start: 11-06-2023 End: 11-06-2023 Patient encounter procedure 11/06/2023 12:30 PM EDT Office Visit [facility] [address] [place] [id number] Anthony Epperson, PAArielaC [address] [place], [place] [id number] [facility] Start: 04-01-2023 DTaP,Tdap and Td Vaccines (7 - Td or Tdap) DTaP,Tdap and Td Vaccines (7 - Td or Tdap) [facility] Start: 11-21-2022 Adult BMI Screening Adult BMI Screen ing [facility] Start: 09-21-2020 CT of pelvis with contrast CT pelvis w con [facility] Start: 2014 Screening for malign ant neoplasm of cervix [facility] Start: 2005 Screening for malign ant neoplasm of cervix Pap Smear [facility] Start: 1996 Depression Screening Depression Scre ening [facility] End: 09-10-2024 EMG With NCV EMG With NCV Neurology Routine Cervical radiculopathy 1 Occurrences starting 09/11/2023 until 09/10/2024 [facility] Comment on above: 1 Occurrences starti ng 09/11/2023 until 09/10/2024 Patient Education Crow Non Diagn ostic Block [facility] Patient referral [facility] End: 09-10-2024 XR Cervical spine 4 or 5 Views X-ray spine cervical 4 or 5 views Imaging Routine Cervical radiculopathy Cervical spine pain 1 Occurrences starting 09/11/2023 until 09/10/2024 [facility] Work Phone: Comment on above: 1 Occurrences starti ng 09/11/2023 until 09/10/2024 XR Foot - left 2 Views XR foot 1 or 2 views left Imaging Routine Sesamoiditis of left foot 01/30/2024 6:20 PM EDT [facility] Work Phone: [facility] Immunizations Immunization Date Immunization Notes Care Provider Lana grace 02-05-2024 Influenza, injectabl e, Madin Otisco Canine Kidney, preservative free, quadrivalent Fdeerico Mckeon DPM Work Phone: [facility] 01-11-2023 influenza, injectabl e, quadrivalent, preservative free Bhakti Aicrohithholz [employer] Work Phone: [facility] 01-11-2023 influenza virus vaccine, unspecified formulation Anthony Epperson PA-C Work Phone: [facility] 01-27-2022 influenza, injectabl e, quadrivalent, preservative free Bhakti Aichholz [employer] Work Phone: [facility] 05-13-2015 hepatitis B vaccine, adult dosage Bhakti Aichholz [employer] Work Phone: [facility] 05-13-2015 influenza, injectabl e, quadrivalent, preservative free Bhakti Aichholz [employer] Work Phone: [facility] 04-01-2013 tetanus toxoid, redu sandy diphtheria toxoid, and acellular pertussis vaccine, adsorbed Bhakti Aichholz [employer] Work Phone: [facility] 11-12-2006 hepatitis B vaccine, pediatric or pediatric/adolescent dosage Bhakti Aichholz [employer] Work Phone: [facility] 12-17-1996 hepatitis B vaccine, pediatric or pediatric/adolescent dosage Bhakti Aichholz [employer] WORK[employer] Work Phone: [facility] 12-17-1996 TD(adult) unspecifie d formulation Bhakti Aichholz [employer] WORK[employer] Work Phone: [facility] 11-12-1996 hepatitis B vaccine, pediatric or pediatric/adolescent dosage Bhakti Aichholz [employer] Work Phone: [facility] 11-12-1996 measles, mumps and rubella virus vaccine Bhakti Aichholz [employer] WORK[employer] Work Phone: [facility] 11-28-1989 diphtheria, tetanus toxoids and pertussis vaccine Bhakti Aichholz [employer] Work Phone: [facility] 11-28-1989 poliovirus vaccine, unspecified formulation Bhakti Aichholz [employer] WORK[employer] Work Phone: [facility] 07-28-1987 diphtheria, tetanus toxoids and pertussis vaccine Bhakti Aichholz [employer] WORK[employer] Work Phone: [facility] 07-28-1987 measles, mumps and rubella virus vaccine Bhakti Aichholz [employer] WORK[employer] Work Phone: [facility] 07-28-1987 poliovirus vaccine, unspecified formulation Bhakti Aichholz [employer] WORK[employer] Work Phone: [facility] 05-28-1985 diphtheria, tetanus toxoids and pertussis vaccine Bhakti Talavera [employer] Work Phone: [facility] 02-26-1985 diphtheria, tetanus toxoids and pertussis vaccine Bhakti Rylanz [employer] Work Phone: [facility] 02-26-1985 poliovirus vaccine, unspecified formulation Bhakticitlalli Faganz [employer] Work Phone: [facility] 1984 diphtheria, tetanus toxoids and pertussis vaccine Bhakti Rylanz [employer] Work Phone: [facility] 1984 poliovirus vaccine, unspecified formulation Bhakti Rylanz [employer] WORK[employer] Work Phone: [facility] Payers Date Payer Category Payer Managed Care HMO (unspecified) [id number] 2022 Unknown [facility] [employer] [id number] 2022-Present [phone] [address] [place] [address] [id number] 2022 Unknown [id number] 1984 Unknown [id number] 2.16.840.1.038728.3.579.2 .647 1984 Unknown [id number] 2.16.840.1.898816.3.579.2 .593 1984 Unknown [id number] 2.16.840.1.778088.3.579.2 .593 1984 Unknown [id number] 2.16.840.1.423495.3.579.2 .593 1984 Unknown [id number] 2.16.840.1.341321.3.579.2 .593 1984 Unknown [id number] 2.16.840.1.024543.3.579.2 .593 1984 Unknown [id number] 2.16.840.1.192839.3.579.2 .593 1984 Unknown [id number] 2.16.840.1.744696.3.579.2 .59 1984 Unknown [id number] 2.16.840.1.092151.3.579.2 .1258 1984 Unknown [id number] 2.16840.1.572269.3.579.2 .1258 1984 Unknown [id number] 2.16840.1.377846.3.579.2 .1258 1984 Unknown [id number] 2.16840.1.923862.3.579.2 .1258 1984 Unknown [id number] 2.16840.1.164286.3.579.2 .1258 1984 Unknown [id number] 2.840.1.559353.3.579.2 .1258 1984 Unknown [id number] 2.840.1.479972.3.579.2 .1258 1984 Unknown [id number] 2.16840.1.973876.3.579.2 .1258 1984 Unknown [id number] 2.16840.1.949859.3.579.2 .1285 1984 Unknown [id number] 2.840.1.119505.3.579.2 .1285 1984 Unknown [id number] 2.16840.1.507117.3.579.2 .1285 1984 Unknown [id number] 2.16840.1.495064.3.579.2 .1285 1984 Unknown [id number] 2.16840.1.484142.3.579.2 .1285 1984 Unknown [id number] 2.16840.1.634922.3.579.2 .1285 1984 Unknown [id number] 2.16.840.1.543824.3.579.2 .[facility] Unknown [id number] 2.16.840.1.398015.3.579.2 .1285 1984 Unknown [id number] 2.16.840.1.457394.3.579.2 .[facility] Unknown [id number] 2.16.840.1.821720.3.579.2 .[facility] Unknown [id number] 2.16.840.1.417504.3.579.2 .[facility] Unknown [id number] 2.16.840.1.241620.3.579.2 .[facility] Unknown [id number] 2.16.840.1.163196.3.579.2 .[facility] Unknown [id number] 2.16.840.1.463540.3.579.2 .[facility] Unknown [id number] 2.16.840.1.007142.3.579.2 .[facility] Unknown [id number] 2.16.840.1.802473.3.579.2 .[facility] Unknown [id number] Self-pay Self Pay [id number] Social History Date Type Detail Facility Start: 09-21-2020 End: 01-14-2024 Tobacco smoking status [facility] Ex-smoker (finding) [facility] Start: 1985 Sex Assigned At [facility] Start: 10-07-2023 End: 02-13-2024 Sex Assigned At [facility] Start: 04-08-1994 End: 04-08-2014 History of tobacco use Current smoker [facility] Start: 04-08-1994 End: 04-08-2014 History of tobacco use Cigarette Smoker [facility] Start: 03-20-2023 End: 10-07-2023 Cigarettes smoked current (pack per day) - Reported 0.5 [facility] Start: 03-20-2023 End: 01-14-2024 Tobacco use and exposure Smokeless tobacco non-user [facility] Start: 12-11-2023 End: 07-13-2024 Alcoholic beverage intake Current drinker of alcohol (finding) [facility] How often do you nee d to have someone help you when you read instructions, pamphlets, or other written material from your doctor or pharmacy [SILS] Never [facility] Do you belong to any clubs or organizations such as yarsani groups, unions, fraternal or athletic groups, or school groups? Yes [facility] Are you now , , , , never or living with a partner? [facility] How often to you hav e a drink containing alcohol? Never [facility] Do you feel stress - tense, restless, nervous, or anxious, or unable to sleep at night because your mind is troubled all the time - these days [OSQ] Very much [facility] (I/We) worried wheth er (my/our) food would run out before (I/we) got money to buy more. Never true [facility] In the past 12 month s, was there a time when you were not able to pay the mortgage or rent on time? No [facility] Start: 04-08-2023 Alcohol Comment monthly or less [facility] Start: 1985 Sex assigned at Not on file [facility] Start: 02-17-2024 Sex Female (finding) [facility] Start: 04-10-2019 Tobacco Comment quit 2014 [facility] Start: 04-10-2019 Alcohol Comment occassional [facility] Medical Equipment Procedure Code Equipment Code Equipment Origin al Text Equipment Identifier Dates Spinal fusion gr aft kit [id number] FDA Start: 01-02-2021 Orthopaedic bone screw, non-bioabsorbable, sterile [id number] FDA Start: 01-02-2021 Orthopaedic bone screw, non-bioabsorbable, sterile [id number] FDA Start: 01-02-2021 Clinical Notes 11-06-2014 to 07-13-2024 Viki Funk, EDWIN - 07/13/2024 2:50 PM EDTFederico Citlalli Mike, DPM - 02/13/2024 3:10 PM ESTFederico Mckeon, DPM - 01/30/2024 4:20 PM EDTTelephone Encounter - Bhakti Talavera, SARWAT - 01/30/2024 1:12 PM EDT Note Date & Type Note Facility 07-13-2024 History of Present illness Narrative Reason for Appointment: Patient ID: Gissel Chapa is a 38 y.o. female who presents for Uterine Prolapse Patient presents today for Consult appointment. MEDICATIONS Current Outpatient Medications Medication Instructions amphetamine-dextroamphetamine (Adderall) 15 MG tablet 15 mg, Oral, Daily amphetamine-dextroamphetamine XR (Adderall XR) 30 MG 24 hr capsule 30 mg, Oral, Daily RT lamoTRIgine (LAMICTAL) 100 mg, Oral, Daily meloxicam (MOBIC) 15 mg, Oral, Daily nortriptyline (PAMELOR) 150 mg, Oral, Nightly, Take 3 po at night omeprazole (PRILOSEC) 20 mg, Oral, Nightly SUMAtriptan (IMITREX) 50 mg, Oral, Daily PRN, May repeat dose once in 2 hours if no relief. Do not exceed 2 doses in 24 hours. No more than twice a week tiZANidine (ZANAFLEX) 4 mg, Oral, Nightly ALLERGIES Allergies Allergen Reactions Hydrocodone Morphine Other Reaction(s): swelling/hives Promethazine Other Reaction(s): swelling/hives PROBLEMS Active Ambulatory Problems Diagnosis Date Noted Spasm of muscle 03/20/2023 ADHD (attention deficit hyperactivity disorder) ([facility]) 03/20/2023 Anxiety 03/20/2023 Depression ([facility]) 03/20/2023 Elevated blood sugar 03/20/2023 Gastroesophageal reflux disease 03/20/2023 Hyperlipemia ([facility]) 03/20/2023 Insomnia 03/20/2023 Lumbar back pain 03/20/2023 Lumbar spondylosis 03/20/2023 Mass of left ear 03/20/2023 Menorrhagia 03/20/2023 Migraine 03/20/2023 Positive depression screening 03/20/2023 Right hip pain 03/20/2023 Right knee pain 03/20/2023 Spinal stenosis, lumbosacral region 03/20/2023 Internal derangement of right knee 03/20/2023 Wellness examination 03/20/2023 Chronic neck pain 08/06/2023 Paresthesia and pain of extremity 2023 Major depressive disorder with single episode, in partial remission (HCC) ([facility]) 12/08/2020 Generalized anxiety disorder ([facility]) 07/21/2018 Disorder of sacrum 01/21/2020 Cervical radiculopathy 09/11/2023 Left foot pain 12/11/2023 Nausea 01/30/2024 Resolved Ambulatory Problems Diagnosis Date Noted No Resolved Ambulatory Problems Past Medical History: Diagnosis Date Abdominal pain, generalized Abdominal pain, right upper quadrant Abnormal CBC Abnormal uterine bleeding Abnormal x-ray of pelvis Anxiety disorder Arthralgia Asthma At low risk for fall Brachial neuritis or radiculitis Chronic pain Coccyx pain COVID DENIES H/O BLOOD BORNE DISEASE Fibromyalgia History of premature delivery Muscle spasm Neck pain Onychomycosis Placental abruption Pre-op examination Rectal bleeding Shortness of breath Skin lesion of back Stomach problems Tinea pedis Vitamin D deficiency Well woman exam HISTORY PAST MEDICAL HISTORY SOCIAL HISTORY Past Medical History: Diagnosis Date Abdominal pain, generalized Abdominal pain, right upper quadrant Abnormal CBC Abnormal uterine bleeding Abnormal x-ray of pelvis ADHD (attention deficit hyperactivity disorder) ([facility]) Anxiety Anxiety disorder Arthralgia Asthma At low risk for fall Brachial neuritis or radiculitis Chronic pain Coccyx pain COVID DENIES H/O BLOOD BORNE DISEASE Depression ([facility]) Elevated blood sugar Fibromyalgia Gastroesophageal reflux disease History of premature delivery Hyperlipemia ([facility]) Insomnia Lumbar back pain Lumbar spondylosis Mass of left ear Menorrhagia Migraine Muscle spasm Neck pain Onychomycosis Placental abruption Positive depression screening Pre-op examination Rectal bleeding Right hip pain Right knee pain Shortness of breath Skin lesion of back Spinal stenosis, lumbosacral region Stomach problems STOMACH TROUBLE Tinea pedis Vitamin D deficiency Well woman exam Wellness examination 03/20/2023 Social History Tobacco Use Smoking status: Former Current packs/day: 0.00 Average packs/day: 0.5 packs/day for 20.0 years (10.0 ttl pk-yrs) Types: Cigarettes Start date: 1994 Quit date: 2014 Years since quittin.2 Smokeless tobacco: Never Vaping Use Vaping status: Never Used Substance Use Topics Alcohol use: Yes Comment: monthly or less Drug use: Never FAMILY HISTORY Family History Problem Relation Name Age of Onset Mental illness Mother SURGICAL HISTORY Past Surgical History: Procedure Laterality Date BACK SURGERY 2008 L5/S1 PE [address] MEDRANO CERVICAL SPINE SURGERY [address] CLARK KNEE SURGERY Right 04/21/[address] LORI BOX 05/2005 LUMBAR FUSION 09/2007 decompression/ fusion lower spine THORACIC SPINE SURGERY 2015 WRIST SURGERY Left 2003 ARTHROSCOPY WRIST SURGERY Left 08/2003 arthroscopic surgery REVIEW OF SYSTEMS Review of Systems: Review of Systems All other systems reviewed and are negative. OBJECTIVE Objective: Physical Exam Constitutional: Appearance: Normal appearance. She is well-developed. Genitourinary: Vulva normal. Genitourinary Comments: Rectocele noted on pelvic exam. Posterior vaginal prolapse present. Cardiovascular: Rate and Rhythm: Normal rate and regular rhythm. Pulmonary: Effort: Pulmonary effort is normal. Breath sounds: Normal breath sounds. Abdominal: General: Bowel sounds are normal. There is no distension. Palpations: Abdomen is soft. Tenderness: There is no abdominal tenderness. There is no guarding or rebound. Musculoskeletal: General: No swelling. Normal range of motion. Right lower leg: No edema. Left lower leg: No edema. Neurological: Mental Status: She is alert and oriented to person, place, and time. Skin: General: Skin is warm and dry. Psychiatric: Mood and Affect: Mood normal. Behavior: Behavior normal. Vitals and nursing note reviewed. Exam conducted with a transfer station attendant present. Vitals: Estimated body mass index is 21.8 kg/m as calculated from the following: Height as of 02/13/24: 5' 3.5 . Weight as of this encounter: 125 lb. BP: 108/70 No LMP recorded. ASSESSMENT & PLAN ICD-10-CM 1. Uterine prolapse N81.4 2. Rectocele N81.6 Patient presents today for possible prolapse. Patient voiced that she is also having constipation and that she feels something in the way when she attempts to have a bowel movement. Advised patient to start Metamucil and Colace to assist with constipation. Patient advised to start Estrogen vaginally daily for 2 weeks and then twice weekly thereafter. Patient to return to clinic in 4-6 weeks for annual and follow up medication. Documented by Viki Funk LPN on behalf of: Adrian Arguello DO documented in this encounter [facility] 02-13-2024 History of Present illness Narrative Patient: Gissel Chapa : 1985 PCP: Carlos Desai MD SUBJECTIVE Patient presents today for follow up of capsulitis and synovitis to the left 1st MPJ capsule Currently they rate their pain on a 1-10 scale a 3 States prior treatments of steroid injection and nsaids with intermittent relief States pain is aggrevated with WB. Patient has history of sesamoiditis and also metatarsalgia to left foot and awaits approval of orthotics Patient has been taking Mobic and is currently not covered with orthotics due to deductible Allergies: Allergies Allergen Reactions Hydrocodone Hydrocodone-Acetaminophen Unknown Morphine Other Reaction(s): swelling/hives Promethazine Other Reaction(s): swelling/hives Past Medical History: Past Medical History: Diagnosis Date Abdominal pain, generalized Abdominal pain, right upper quadrant Abnormal CBC Abnormal uterine bleeding Abnormal x-ray of pelvis ADHD (attention deficit hyperactivity disorder) (CMS/HCC) Anxiety Anxiety disorder Arthralgia Asthma (CMS/HCC) At low risk for fall Brachial neuritis or radiculitis Chronic pain Coccyx pain COVID DENIES H/O BLOOD BORNE DISEASE Depression (CMS/HCC) Elevated blood sugar Fibromyalgia Gastroesophageal reflux disease History of premature delivery Hyperlipemia (CMS/HCC) Insomnia Lumbar back pain Lumbar spondylosis Mass of left ear Menorrhagia Migraine (CMS/HCC) Muscle spasm Neck pain Onychomycosis Placental abruption Positive depression screening Pre-op examination Rectal bleeding Right hip pain Right knee pain Shortness of breath Skin lesion of back Spinal stenosis, lumbosacral region Stomach problems STOMACH TROUBLE Tinea pedis Vitamin D deficiency Well woman exam Wellness examination 03/20/2023 Medications: Current Outpatient Medications: amphetamine-dextroamphetamine (Adderall) 15 MG tablet, Take 15 mg by mouth Daily, Disp: , Rfl: amphetamine-dextroamphetamine XR (Adderall XR) 30 MG 24 hr capsule, Take 30 mg by mouth in the morning., Disp: , Rfl: clobetasol (Temovate) 0.05 % external solution, APPLY 3-4 DROPS TO SCALP DAILY NEEDED FOR FLARES, Disp: , Rfl: lamoTRIgine (LaMICtal) 100 MG tablet, Take 100 mg by mouth Daily, Disp: , Rfl: meloxicam (Mobic) 15 MG tablet, Take 1 tablet (15 mg) by mouth Daily, Disp: 30 tablet, Rfl: 0 methylPREDNISolone (Medrol Dospak) 4 MG tablets, Follow schedule on MEDROL PACK package instructions to be used as directed, Disp: 21 tablet, Rfl: 0 nortriptyline (Pamelor) 50 MG capsule, Take 150 mg by mouth at bedtime Take 3 po at night, Disp: , Rfl: omeprazole (PriLOSEC) [address] capsule, Take 20 mg by mouth at bedtime, Disp: , Rfl: SUMAtriptan (Imitrex) 50 MG tablet, Take 1 tablet (50 mg) by mouth Daily as needed for migraine May repeat dose once in 2 hours if no relief. Do not exceed 2 doses in 24 hours. No more than twice a week, Disp: 9 tablet, Rfl: 0 tiZANidine (Zanaflex) 4 MG tablet, Take 1 tablet (4 mg) by mouth at bedtime, Disp: 90 tablet, Rfl: 1 Social History: Social History Socioeconomic History Marital status: Spouse name: Not on file Number of children: Not on file Years of education: Not on file Highest education level: Not on file Occupational History Not on file Tobacco Use Smoking status: Former Current packs/day: 0.00 Average packs/day: 0.5 packs/day for 20.0 years (10.0 ttl pk-yrs) Types: Cigarettes Start date: 1994 Quit date: 2015 Years since quittin.8 Smokeless tobacco: Never Vaping Use Vaping status: Never Used Substance and Sexual Activity Alcohol use: Yes Comment: monthly or less Drug use: Never Sexual activity: Yes control/protection: Male Sterilization Other Topics Concern Not on file Social History Narrative Not on file Social Drivers of Health Financial Resource Strain: Low Risk (10/07/2023) Overall Financial Resource Strain (CARDIA) Difficulty of Paying Living Expenses: Not hard at all Food Insecurity: No Food Insecurity (01/06/2024) Received from [facility] Hunger Screening Within the past 12 months we worried whether our food would run out before we got money to buy more.: Never True Within the past 12 months the food we bought just didn't last and we didn't have money to get more.: Never True Transportation Needs: Unmet Transportation Needs (10/07/2023) PRAPARE - Transportation Lack of Transportation (Medical): Yes Lack of Transportation (Non-Medical): No Physical Activity: Inactive (10/07/2023) Exercise Vital Sign Days of Exercise per Week: 0 days Minutes of Exercise per Session: 0 min Stress: Stress Concern Present (10/07/2023) [employer] [place] [employer] - Occupational Stress Questionnaire Feeling of Stress : Very much Social Connections: Moderately Integrated (10/07/2023) Social Connection and Isolation Panel [NHANES] Frequency of Communication with Friends and Family: Never Frequency of Social Gatherings with Friends and Family: Never Attends Taoism Services: More than 4 times per year Active Member of Clubs or Organizations: Yes Attends Club or Organization Meetings: More than 4 times per year Marital Status: Intimate Partner Violence: Not on file Housing Stability: Unknown (10/07/2023) Housing Stability Vital Sign Unable to Pay for Housing in the Last Year: No Number of Times Moved in the Last Year: Not on file Homeless in the Last Year: No ROS: General: denies fever, chills, fatigue, malaise Gastrointestinal: denies abdominal pain, ulcers, or changes in appetite or bowel habits Musculoskeletal: Positive history of back arthritis with injections in the past and history of herniated disc disease Cardiovascular: denies CP, palpitations, irregular rhythms OBJECTIVE LE EXAM: DERM: Positive hair growth to b/l feet with good skin turgor noted. Negative openings in skin. Minimal Dry scaly peeling skin to left forefoot region VASC: Palpable pedal pulsed b/l with warm to cool tibia to toes b/l NEURO: Gross sensation intact digits 1-10 and b/l feet ORTHO: +5/5 DF/PF/IN/EV right, +5/5 DF/PF/IN/EV left. 20 degrees inversion and 10 degrees eversion STJ b/l. Ankle ROM less than 10 degrees b/l. Positive pain on palpation to left sesamoid apparatus as well as left 1st MPJ capsule Positive pain on palpation left 2nd 3rd and 4th MPJ capsule and metatarsal head regions XRAY: One view x-ray of the left foot demonstrates bipartite medial sesamoid with negative fractures identified ASSESSMENT 1. Sesamoiditis of left foot 2. Capsulitis of metatarsophalangeal (MTP) joint of left foot 3. Metatarsalgia, left foot PLAN Patient to continue with oral anti - inflammatories as needed for pain and recommended OTC medications such as tylenol or Ibuprofen Discussed custom orthotics and [id number] cost as not covered currently at this time has not met the deductible and recommend metatarsal pad but able to do at this time and may consider in the near future otherwise recommended Dr. Rucker gel type inserts offload the forefoot plantarly Federico Mckeon DPM documented in this encounter [facility] 01-30-2024 History of Present illness Narrative Patient: Gissel Livingston Eduard : 1985 PCP: Carlos Desai MD SUBJECTIVE Patient presents today for follow up of capsulitis and synovitis to the left 1st MPJ capsule Currently they rate their pain on a 1-10 scale a 5 States prior treatments of steroid injection and nsaids with intermittent relief States pain is aggrevated with WB. Patient has history of sesamoiditis and also metatarsalgia to left foot and awaits approval of orthotics She also took Medrol pack with intermittent improvement to the left foot Allergies: Allergies Allergen Reactions Hydrocodone Hydrocodone-Acetaminophen Unknown Morphine Other Reaction(s): swelling/hives Promethazine Other Reaction(s): swelling/hives Past Medical History: Past Medical History: Diagnosis Date Abdominal pain, generalized Abdominal pain, right upper quadrant Abnormal CBC Abnormal uterine bleeding Abnormal x-ray of pelvis ADHD (attention deficit hyperactivity disorder) (CMS/HCC) Anxiety Anxiety disorder Arthralgia Asthma (CMS/HCC) At low risk for fall Brachial neuritis or radiculitis Chronic pain Coccyx pain COVID DENIES H/O BLOOD BORNE DISEASE Depression (CMS/HCC) Elevated blood sugar Fibromyalgia Gastroesophageal reflux disease History of premature delivery Hyperlipemia (CMS/HCC) Insomnia Lumbar back pain Lumbar spondylosis Mass of left ear Menorrhagia Migraine (CMS/HCC) Muscle spasm Neck pain Onychomycosis Placental abruption Positive depression screening Pre-op examination Rectal bleeding Right hip pain Right knee pain Shortness of breath Skin lesion of back Spinal stenosis, lumbosacral region Stomach problems STOMACH TROUBLE Tinea pedis Vitamin D deficiency Well woman exam Wellness examination 03/20/2023 Medications: Current Outpatient Medications: amphetamine-dextroamphetamine (Adderall) 15 MG tablet, Take 15 mg by mouth Daily, Disp: , Rfl: amphetamine-dextroamphetamine XR (Adderall XR) 30 MG 24 hr capsule, Take 30 mg by mouth in the morning., Disp: , Rfl: clobetasol (Temovate) 0.05 % external solution, APPLY 3-4 DROPS TO SCALP DAILY NEEDED FOR FLARES, Disp: , Rfl: lamoTRIgine (LaMICtal) 100 MG tablet, Take 100 mg by mouth Daily, Disp: , Rfl: methylPREDNISolone (Medrol Dospak) 4 MG tablets, Follow schedule on MEDROL PACK package instructions to be used as directed, Disp: 21 tablet, Rfl: 0 nortriptyline (Pamelor) 50 MG capsule, Take 150 mg by mouth at bedtime Take 3 po at night, Disp: , Rfl: omeprazole (PriLOSEC) [address] capsule, Take 20 mg by mouth at bedtime, Disp: , Rfl: ondansetron ODT (Zofran-ODT) 4 MG disintegrating tablet, Take 4 mg by mouth if needed for nausea or vomiting, Disp: , Rfl: SUMAtriptan (Imitrex) 50 MG tablet, 1 (ONE) TABLET TAKE AT ONSET OF MIGRAINE HEADACHE, MAY REPEAT IN 2 HOURS IF NEEDED, NO MORE THAN 2 PILLS IN 24 HOURS, AND DO NOT TAKE MORE THAN TWICE A WEEK, Disp: 9 tablet, Rfl: 1 tiZANidine (Zanaflex) 4 MG tablet, Take 1 tablet (4 mg) by mouth at bedtime, Disp: 90 tablet, Rfl: 1 Social History: Social History Socioeconomic History Marital status: Spouse name: Not on file Number of children: Not on file Years of education: Not on file Highest education level: Not on file Occupational History Not on file Tobacco Use Smoking status: Former Current packs/day: 0.00 Average packs/day: 0.5 packs/day for 20.0 years (10.0 ttl pk-yrs) Types: Cigarettes Start date: 1994 Quit date: 2015 Years since quittin.8 Smokeless tobacco: Never Vaping Use Vaping status: Never Used Substance and Sexual Activity Alcohol use: Yes Comment: monthly or less Drug use: Never Sexual activity: Yes control/protection: Male Sterilization Other Topics Concern Not on file Social History Narrative Not on file Social Drivers of Health Financial Resource Strain: Low Risk (10/07/2023) Overall Financial Resource Strain (CARDIA) Difficulty of Paying Living Expenses: Not hard at all Food Insecurity: No Food Insecurity (01/06/2024) Received from [facility] [employer] Hunger Screening Within the past 12 months we worried whether our food would run out before we got money to buy more.: Never True Within the past 12 months the food we bought just didn't last and we didn't have money to get more.: Never True Transportation Needs: Unmet Transportation Needs (10/07/2023) PRAPARE - Transportation Lack of Transportation (Medical): Yes Lack of Transportation (Non-Medical): No Physical Activity: Inactive (10/07/2023) Exercise Vital Sign Days of Exercise per Week: 0 days Minutes of Exercise per Session: 0 min Stress: Stress Concern Present (10/07/2023) [employer] [place] [employer] - Occupational Stress Questionnaire Feeling of Stress : Very much Social Connections: Moderately Integrated (10/07/2023) Social Connection and Isolation Panel [NHANES] Frequency of Communication with Friends and Family: Never Frequency of Social Gatherings with Friends and Family: Never Attends Taoism Services: More than 4 times per year Active Member of Clubs or Organizations: Yes Attends Club or Organization Meetings: More than 4 times per year Marital Status: Intimate Partner Violence: Not on file Housing Stability: Unknown (10/07/2023) Housing Stability Vital Sign Unable to Pay for Housing in the Last Year: No Number of Times Moved in the Last Year: Not on file Homeless in the Last Year: No ROS: General: denies fever, chills, fatigue, malaise Gastrointestinal: denies abdominal pain, ulcers, or changes in appetite or bowel habits Musculoskeletal: Positive history of back arthritis with injections in the past and history of herniated disc disease Cardiovascular: denies CP, palpitations, irregular rhythms OBJECTIVE LE EXAM: DERM: Positive hair growth to b/l feet with good skin turgor noted. Negative openings in skin. Minimal Dry scaly peeling skin to left forefoot region VASC: Palpable pedal pulsed b/l with warm to cool tibia to toes b/l NEURO: Gross sensation intact digits 1-10 and b/l feet ORTHO: +5/5 DF/PF/IN/EV right, +5/5 DF/PF/IN/EV left. 20 degrees inversion and 10 degrees eversion STJ b/l. Ankle ROM less than 10 degrees b/l. Positive pain on palpation to left sesamoid apparatus as well as left 1st MPJ capsule Diminished pain on palpation left 2nd 3rd and 4th MPJ capsule and metatarsal head regions XRAY: One view x-ray of the left foot demonstrates bipartite medial sesamoid with negative fractures identified ASSESSMENT 1. Metatarsalgia, left foot 2. Capsulitis of metatarsophalangeal (MTP) joint of left foot 3. Sesamoiditis of left foot PLAN Patient to continue with oral anti - inflammatories as needed for pain and recommended OTC medications such as tylenol or Ibuprofen Discussed with patient to continue with [id number] inserts and will pre-certify for orthotics Patient be placed on a prescription of Mobic She is to follow up in 3 weeks Reviewed x-ray results today with patient Federico Mcekon DPM documented in this encounter [facility] 01-30-2024 Telephone encounter Note Pt contacts provider asking for a refill of zofran and imitrex scripts [facility] 01-30-2024 Miscellaneous Notes Pt contacts provider asking for a refill of zofran and imitrex scripts documented in this encounter [facility] 01-15-2024 Telephone encounter Note done [facility] 01-15-2024 Miscellaneous Notes done Patient called stating a Medrol DosePak was supposed to be sent to [facility] in [place] but the pharmacy does not have it. Can you please send per patient's request? (It is noted in the last office office note.) documented in this encounter [facility] 01-15-2024 Telephone encounter Note Patient called stating a Medrol DosePak was supposed to be sent to [facility] in [place] but the pharmacy does not have it. Can you please send per patient's request? (It is noted in the last office office note.) [facility] 01-14-2024 History of Present illness Narrative Patient: Gissel Chapa : 1985 PCP: Carlos Desai MD SUBJECTIVE This is a 38 y.o. female that presents today for a chief complaint of left forefoot pain for the past 3-4 months. Patient states she recently took steroids with some improvement but states pain with 1st steps in the morning and with prolonged standing and points to the left 1st 2nd and 3rd plantar metatarsal regions. She states condition initially begun when she or flip-flops at the local counts include [address] beds at the [facility] and had pain to the forefoot following. She has had unrelenting pain since that point in time with minimal relief with anti-inflammatories or different shoes. Denies trauma Allergies: Allergies Allergen Reactions Hydrocodone Hydrocodone-Acetaminophen Unknown Morphine Other Reaction(s): swelling/hives Promethazine Other Reaction(s): swelling/hives Past Medical History: Past Medical History: Diagnosis Date Abdominal pain, generalized Abdominal pain, right upper quadrant Abnormal CBC Abnormal uterine bleeding Abnormal x-ray of pelvis ADHD (attention deficit hyperactivity disorder) (CMS/HCC) Anxiety Anxiety disorder Arthralgia Asthma (CMS/HCC) At low risk for fall Brachial neuritis or radiculitis Chronic pain Coccyx pain COVID DENIES H/O BLOOD BORNE DISEASE Depression (CMS/HCC) Elevated blood sugar Fibromyalgia Gastroesophageal reflux disease History of premature delivery Hyperlipemia (CMS/HCC) Insomnia Lumbar back pain Lumbar spondylosis Mass of left ear Menorrhagia Migraine (CMS/HCC) Muscle spasm Neck pain Onychomycosis Placental abruption Positive depression screening Pre-op examination Rectal bleeding Right hip pain Right knee pain Shortness of breath Skin lesion of back Spinal stenosis, lumbosacral region Stomach problems STOMACH TROUBLE Tinea pedis Vitamin D deficiency Well woman exam Wellness examination 03/20/2023 Medications: Current Outpatient Medications: amphetamine-dextroamphetamine (Adderall) 15 MG tablet, Take 15 mg by mouth Daily, Disp: , Rfl: amphetamine-dextroamphetamine XR (Adderall XR) 30 MG 24 hr capsule, Take 30 mg by mouth in the morning., Disp: , Rfl: clobetasol (Temovate) 0.05 % external solution, APPLY 3-4 DROPS TO SCALP DAILY NEEDED FOR FLARES, Disp: , Rfl: lamoTRIgine (LaMICtal) 100 MG tablet, Take 100 mg by mouth Daily, Disp: , Rfl: nortriptyline (Pamelor) 50 MG capsule, Take 150 mg by mouth at bedtime Take 3 po at night, Disp: , Rfl: omeprazole (PriLOSEC) [address] capsule, Take 20 mg by mouth at bedtime, Disp: , Rfl: ondansetron ODT (Zofran-ODT) 4 MG disintegrating tablet, Take 4 mg by mouth if needed for nausea or vomiting, Disp: , Rfl: SUMAtriptan (Imitrex) 50 MG tablet, 1 (ONE) TABLET TAKE AT ONSET OF MIGRAINE HEADACHE, MAY REPEAT IN 2 HOURS IF NEEDED, NO MORE THAN 2 PILLS IN 24 HOURS, AND DO NOT TAKE MORE THAN TWICE A WEEK, Disp: 9 tablet, Rfl: 1 tiZANidine (Zanaflex) 4 MG tablet, Take 1 tablet (4 mg) by mouth at bedtime, Disp: 90 tablet, Rfl: 1 Social History: Social History Socioeconomic History Marital status: Spouse name: Not on file Number of children: Not on file Years of education: Not on file Highest education level: Not on file Occupational History Not on file Tobacco Use Smoking status: Former Current packs/day: 0.00 Average packs/day: 0.5 packs/day for 20.0 years (10.0 ttl pk-yrs) Types: Cigarettes Start date: 1994 Quit date: 2015 Years since quittin.7 Smokeless tobacco: Never Vaping Use Vaping status: Never Used Substance and Sexual Activity Alcohol use: Yes Comment: monthly or less Drug use: Never Sexual activity: Yes control/protection: Male Sterilization Other Topics Concern Not on file Social History Narrative Not on file Social Determinants of Health Financial Resource Strain: Low Risk (10/07/2023) Overall Financial Resource Strain (CARDIA) Difficulty of Paying Living Expenses: Not hard at all Food Insecurity: No Food Insecurity (01/06/2024) Received from [facility] Hunger Screening Within the past 12 months we worried whether our food would run out before we got money to buy more.: Never True Within the past 12 months the food we bought just didn't last and we didn't have money to get more.: Never True Transportation Needs: Unmet Transportation Needs (10/07/2023) PRAPARE - Transportation Lack of Transportation (Medical): Yes Lack of Transportation (Non-Medical): No Physical Activity: Inactive (10/07/2023) Exercise Vital Sign Days of Exercise per Week: 0 days Minutes of Exercise per Session: 0 min Stress: Stress Concern Present (10/07/2023) [employer] [place] [employer] - Occupational Stress Questionnaire Feeling of Stress : Very much Social Connections: Moderately Integrated (10/07/2023) Social Connection and Isolation Panel [NHANES] Frequency of Communication with Friends and Family: Never Frequency of Social Gatherings with Friends and Family: Never Attends Taoism Services: More than 4 times per year Active Member of Clubs or Organizations: Yes Attends Club or Organization Meetings: More than 4 times per year Marital Status: Intimate Partner Violence: Not on file Housing Stability: Unknown (10/07/2023) Housing Stability Vital Sign Unable to Pay for Housing in the Last Year: No Number of Times Moved in the Last Year: Not on file Homeless in the Last Year: No ROS: General: denies fever, chills, fatigue, malaise Gastrointestinal: denies abdominal pain, ulcers, or changes in appetite or bowel habits Musculoskeletal: Positive history of back arthritis with injections in the past and history of herniated disc disease Cardiovascular: denies CP, palpitations, irregular rhythms OBJECTIVE LE EXAM: DERM: Positive hair growth to b/l feet with good skin turgor noted. Negative openings in skin. Dry scaly peeling skin to left forefoot region VASC: Palpable pedal pulsed b/l with warm to cool tibia to toes b/l NEURO: Gross sensation intact digits 1-10 and b/l feet ORTHO: +5/5 DF/PF/IN/EV right, +5/5 DF/PF/IN/EV left. 20 degrees inversion and 10 degrees eversion STJ b/l. Ankle ROM less than 10 degrees b/l. Positive pain on palpation to left plantar sesamoid apparatus and 1st MPJ region capsule as well as 2nd MPJ and 3rd MPJ regions plantarly with negative Juan F test XRAY: Reviewed [place] x-rays with negative mentions of fractures however did mentionSmall ossicles of near sesamoids of left foot with no mention of fracture. US: DIAGNOSTIC ULTRASOUND REPORT: Verbal order for ultrasound today The 1st MPJ capsule of the left foot was examined with a 12 MHz linear probe in the transverse and sagital planes on the capsular regions of the MPJ. Images obtained. FINDINGS: Ultrasound exam demonstrates capsulitis/inflammation and a hypoechoic signal at plantar capsule on a series of sagittal and transverse images. The plantar 1st metatarsal medial sesamoid demonstrated what appeared to be bipartite sesamoid with hypoechoic signal near sesamoid apparatus IMPRESSION: Ultrasound findings indicated capsulitis and sesamoiditis of the left 1st MPJ ASSESSMENT 1. Sesamoiditis of left foot 2. Left foot pain 3. Capsulitis of metatarsophalangeal (MTP) joint of left foot 4. Metatarsalgia, left foot PLAN Reviewed [place] x-rays and may consider radiographs on follow up Reviewed ultrasound today with patient of left foot Pt was given steroid injection to the medial and lateral capsular ligaments of the left 2nd MPJ under US guidance with visualization of injected fluid into area of concern per imaging. Injection consisted of a 2:1 mixture of xylocaine 2%plain and kenalog 10 for a total of 3ccs. Informed pt of risks and benefits of procedure including infection,damage or rupture to soft tissue structures and steroid flare. Pt understood and consented. This is the patients 1st injection Will pre-certify for orthotics Patient placed on Medrol pack Patient to follow up in 2 weeks Federico Mckeon DPM documented in this encounter [facility] 12-11-2023 History of Present illness Narrative Associated Problem(s): Left foot pain Unclear etiology Differentials: gout, cellulitis, tinea Will have her check xray, uric acid level Atb, and steroids, and anti fungal cream, epsom salt soaks TID Fu if not better Left great toe joint has been bothering pt in the last couple weeks and in the last week the other toes as well have been hurting as well. Pt states she has a knot on top of her foot and if she was wearing tighter shoes that go across the tops it will irritate her foot. Pt toes are red and swollen. Pt states she does not recall anything happening, but the pain does get worse with walking or bending of her toes. Images from the original note were not included. Gissel Chapa is a 38 y.o. female presents with chief complaint of No chief complaint on file. HPI: Sxs started about 3 weeks ago and have continued to worsen. Initially started as left great toe pain, and now the remainder of the toes of left food and mid foot Toes are tender and mild erythema , pain is from 6-9/10 achy pain, pain worse with standing on feet No fever, chills, no other symptoms Pt has tried: NSAIDs, and fungal cream for athletes foot, and epsom salt soaks No hx of gout, no trauma SUBJECTIVE: MEDICATIONS: Current Outpatient Medications Medication Instructions amphetamine-dextroamphetamine (Adderall) 15 MG tablet 15 mg, Oral, Daily amphetamine-dextroamphetamine XR (Adderall XR) 30 MG 24 hr capsule 30 mg, Oral, Daily RT cephalexin (KEFLEX) 500 mg, Oral, 3 times daily clobetasol (Temovate) 0.05 % external solution APPLY 3-4 DROPS TO SCALP DAILY NEEDED FOR FLARES lamoTRIgine (LAMICTAL) 100 mg, Oral, Daily nortriptyline (PAMELOR) 150 mg, Oral, Nightly, Take 3 po at night omeprazole (PRILOSEC) 20 mg, Oral, Nightly ondansetron ODT (ZOFRAN-ODT) 4 mg, Oral, As needed predniSONE (DELTASONE) 20 mg, Oral, 2 times daily before meals, Take with food SUMAtriptan (Imitrex) 50 MG tablet 1 (ONE) TABLET TAKE AT ONSET OF MIGRAINE HEADACHE, MAY REPEAT IN 2 HOURS IF NEEDED, NO MORE THAN 2 PILLS IN 24 HOURS, AND DO NOT TAKE MORE THAN TWICE A WEEK tiZANidine (ZANAFLEX) 4 mg, Oral, Nightly ALLERGIES: Allergies Allergen Reactions Hydrocodone Hydrocodone-Acetaminophen Unknown Morphine Other Reaction(s): swelling/hives Promethazine Other Reaction(s): swelling/hives REVIEW OF SYMPTOMS: Review of Systems Constitutional: Negative for appetite change, chills and fever. HENT: Negative for congestion, ear pain and sore throat. Eyes: Negative for pain, discharge, redness and visual disturbance. Respiratory: Negative for cough, shortness of breath and wheezing. Cardiovascular: Negative for chest pain, palpitations and leg swelling. Gastrointestinal: Negative for abdominal pain, blood in stool, constipation, diarrhea, nausea and vomiting. Genitourinary: Negative for difficulty urinating, dysuria and frequency. Musculoskeletal: Positive for arthralgias (left foot/toes). Negative for back pain, joint swelling and myalgias. Skin: Negative for rash and wound. Neurological: Negative for dizziness, tremors, seizures, syncope and headaches. Psychiatric/Behavioral: Negative for behavioral problems, self-injury and suicidal ideas. The patient is not nervous/anxious. Hematological: Does not bruise/bleed easily. Endocrine: Negative for polydipsia, polyphagia and polyuria. Allergic/Immunologic: Negative for environmental allergies and food allergies. PAST MEDICAL HISTORY Past Medical History: Diagnosis Date Abdominal pain, generalized Abdominal pain, right upper quadrant Abnormal CBC Abnormal uterine bleeding Abnormal x-ray of pelvis ADHD (attention deficit hyperactivity disorder) (CMS/HCC) Anxiety Anxiety disorder Arthralgia Asthma (CMS/HCC) At low risk for fall Brachial neuritis or radiculitis Chronic pain Coccyx pain COVID DENIES H/O BLOOD BORNE DISEASE Depression (CMS/HCC) Elevated blood sugar Fibromyalgia Gastroesophageal reflux disease History of premature delivery Hyperlipemia (CMS/HCC) Insomnia Lumbar back pain Lumbar spondylosis Mass of left ear Menorrhagia Migraine (CMS/HCC) Muscle spasm Neck pain Onychomycosis Placental abruption Positive depression screening Pre-op examination Rectal bleeding Right hip pain Right knee pain Shortness of breath Skin lesion of back Spinal stenosis, lumbosacral region Stomach problems STOMACH TROUBLE Tinea pedis Vitamin D deficiency Well woman exam Wellness examination 03/20/2023 Past Surgical History: Procedure Laterality Date BACK SURGERY 2007 L5/S1 PE DR MEDRANO CERVICAL SPINE SURGERY [address] CLARK KNEE SURGERY Right 04/21/[address] OLRI BOX 05/2005 LUMBAR FUSION 09/2007 decompression/ fusion lower spine THORACIC SPINE SURGERY 2015 WRIST SURGERY Left 2003 ARTHROSCOPY WRIST SURGERY Left 08/2003 arthroscopic surgery family history includes Mental illness in her mother. OBJECTIVE: Visit Vitals BP 124/80 (BP Location: Left arm, Patient Position: Sitting, BP Cuff Size: Adult long) Pulse 105 Temp 98.4 F (Temporal) Resp 18 Wt 131 lb 12.8 oz SpO2 95% BMI 22.98 kg/m Smoking Status Former BSA 1.64 m Physical Exam Vitals and nursing note reviewed. Constitutional: General: She is not in acute distress. Appearance: Normal appearance. HENT: Head: Normocephalic and atraumatic. Right Ear: External ear normal. Left Ear: External ear normal. Nose: Nose normal. Mouth/Throat: Mouth: Mucous membranes are moist. Eyes: Extraocular Movements: Extraocular movements intact. Conjunctiva/sclera: Conjunctivae normal. Cardiovascular: Rate and Rhythm: Normal rate and regular rhythm. Pulses: Normal pulses. Heart sounds: Normal heart sounds. Pulmonary: Effort: Pulmonary effort is normal. Breath sounds: Normal breath sounds. Musculoskeletal: Cervical back: Normal range of motion and neck supple. Comments: Left foot: no gross deformity, all toes mild erythema, no open areas, sl warm to touch, no definite ss infection. Does have evidence of tinea around great toe and sole of foot, mild in appearance, tenderness to the joints of the toes Skin: General: Skin is warm and dry. Capillary Refill: Capillary refill takes 2 to 3 seconds. Findings: No rash. Neurological: General: No focal deficit present. Mental Status: She is alert and oriented to person, place, and time. Psychiatric: Mood and Affect: Mood normal. Behavior: Behavior normal. Thought Content: Thought content normal. Judgment: Judgment normal. ASSESSMENT AND PLAN: No follow-ups on file. Problem List Items Addressed This Visit Left foot pain - Primary Unclear etiology Differentials: gout, cellulitis, tinea Will have her check xray, uric acid level Atb, and steroids, and anti fungal cream, epsom salt soaks TID Fu if not better Relevant Medications predniSONE (Deltasone) 20 MG tablet cephalexin (Keflex) 500 MG capsule Other Relevant Orders XR foot 3+ views left Uric acid documented in this encounter [facility] 09-11-2023 History of Present illness Narrative [facility] [place] [address] Patient: Gissel Chapa Sex: female : 1985 Age: 37 y.o. PCP: BHAKTI TALAVERA, STABILIZER OPERATOR-ECOLOGICAL ECONOMIST 09/11/2023 Gissel Chapa is here for a follow up to discuss neck and low back pain. Patient would like to focus and seek treatment options for neck pain today. She reports her neck pain is achy into her bilateral arms with numbness and tingling. Chief Complaint Patient presents with Neck Pain HPI: Back: SI injections Neck: JANETTE, RFAs with some inprovement Neck Pain This is a chronic problem. The current episode started more than 1 year ago (@ 2013). The problem occurs constantly. The problem has been gradually worsening. The pain is associated with nothing. The pain is present in the midline, left side, right side and occipital region (radiates to bilateral pinky and ring fingers). The quality of the pain is described as aching and cramping. The pain is at a severity of 7/10 (6/10 currently but does increase to 8/10 by the end of the day and after working). The pain is moderate. The symptoms are aggravated by position (looking up, down, left, right, working). The pain is Worse during the day (worse in the evenings but does vary). Stiffness is present In the morning and all day. Associated symptoms include headaches (almost everyday), numbness (bilateral arms sometimes), tingling (bilateral arms sometimes) and weakness. Pertinent negatives include no chest pain, fever or leg pain. Photophobia: at times.Treatments tried: PT (2012), HEP, rest, ice/heat, surgery 2014 and 2015, TENS, chiropractic 2014, meds: zanaflex, lyrica, rayna, motrin, tylenol, darvocet, ty#3, baclofen, icyhot, biofreeze. The treatment provided mild relief. Back Pain This is a chronic problem. The current episode started more than 1 year ago (2012 or longer). The problem occurs constantly. The problem has been gradually worsening since onset. The pain is present in the lumbar spine, sacro-iliac and gluteal (bilateral left is worse). Quality: between a strong ache and stabbing. The pain does not radiate. Pain scale: 7/10 but increases to 9/10. The pain is severe. Worse during: worse depending on the day, varies. Exacerbated by: prolonged standing and driving. Stiffness is present: prolong sitting/standing, if pt is in one position for too long. Associated symptoms include headaches (almost everyday), numbness (bilateral arms sometimes), tingling (bilateral arms sometimes) and weakness. Pertinent negatives include no bladder incontinence, bowel incontinence, chest pain, fever or leg pain. Risk factors: PT (2012), HEP, rest, ice/heat, chiropractic 2014, stim, meds: zanaflex, lyrica, rayna, motrin, tylenol, darvocet, ty#3, bacolfen, icyhot, biofreeze. Treatments tried: PT (2012), HEP, rest, ice/heat, chiropractic 2014, surgery 2007 and 12/2020, stim, meds: zanaflex, lyrica, rayna, motrin, tylenol, darvocet, ty#3, bacolfen, icyhot, biofreeze. Improvement on treatment: Bilat SI injection 01/29/2020 80% relief; Right SI injection 07/15/2020 & 07/29/2020 w/ 60-70% relief. The effect of pain on patient's ADLS: Moderate Impairment. Past Medical History: Diagnosis Date ADHD Anxiety Arthralgia Asthma BiPAP (biphasic positive airway pressure) dependence Depression GERD (gastroesophageal reflux disease) Hyperlipidemia Insomnia Low back pain Migraine headache without aura Neck pain Numbness Onychomycosis Panic disorder Sleep apnea Spontaneous pneumothorax 2014 x2, had partial lobectomy as a result Visual impairment glasses Vitamin D deficiency Weakness Past Surgical History: Procedure Laterality Date ARTHROSCOPY KNEE Right 04/21/2019 Performed by Lloyd Harley Jr., DO at [facility] BACK SURGERY 09/2007 L5-S1 lumbar D/F BACK SURGERY 12/2020 si ESOPHAGOGASTRODUODENOSCOPY INJECTION BLOCK SACROILIAC JOINT Right 07/29/2020 Performed by Fantasma Pop MD at [facility] INJECTION BLOCK SACROILIAC JOINT: Right 07/15/2020 Performed by Fantasma Pop MD at [facility] INJECTION SACROILIAC NERVE Bilateral 03/11/2020 Performed by Fantasma Pop MD at [facility] INJECTION SACROILIAC NERVE Bilateral 01/29/2020 Performed by Fantasma Pop MD at [facility] LUNG SURGERY Right partial lobectomy NECK SURGERY 11/2014 Cervical D/F 11/2014 & 03/2016 SPINE SURGERY lower and c spine WRIST SURGERY Left fractures- cleaned out cartilage Allergies Allergen Reactions Morphine Itching, Swelling and Flushing Phenergan [Promethazine] Itching and Swelling Vicodin [Hydrocodone-Acetaminophen] GI Disturbance Family History Problem Relation Age of Onset Depression Mother Other Mother syringomylia Neuropathy Mother COPD Mother Anxiety disorder Mother Arthritis Father Seizures Brother Social History Socioeconomic History Marital status: Spouse name: Not on file Number of children: Not on file Years of education: Not on file Highest education level: Not on file Occupational History Not on file Tobacco Use Smoking status: Former Smokeless tobacco: Never Tobacco comments: quit 2014 Vaping Use Vaping status: Never Used Substance and Sexual Activity Alcohol use: Yes Comment: occassional Drug use: Never Sexual activity: Yes Partners: Male Other Topics Concern Caffeine Use Yes Social History Narrative Not on file Social Determinants of Health Financial Resource Strain: Not on file Food Insecurity: No Food Insecurity (09/11/2023) Hunger Screening Food Insecurity - Worry: Never True Food Insecurity - Inability: Never True Transportation Needs: Not on file Physical Activity: Not on file Stress: Not on file Social Connections: Not on file Interpersonal Safety: Not on file Housing Instability: Not on file Review of Systems Constitutional: Negative. Negative for chills, diaphoresis and fever. HENT: Negative. Eyes: Negative. Photophobia: at times. Respiratory: Negative. Negative for cough and shortness of breath. Cardiovascular: Negative. Negative for chest pain and palpitations. Gastrointestinal: Negative. Negative for bowel incontinence and constipation. Endocrine: Negative. Genitourinary: Negative. Negative for bladder incontinence. Musculoskeletal: Positive for back pain and neck pain. Skin: Negative. Allergic/Immunologic: Negative. Neurological: Positive for tingling (bilateral arms sometimes), weakness, numbness (bilateral arms sometimes) and headaches (almost everyday). Hematological: Negative. Psychiatric/Behavioral: Negative. Vital Signs: BP 113/72 (BP Site: Right Arm, BP Postition: Sitting) Pulse 99 Resp 20 Physical Exam: GENERAL - Healthy patient that appears stated age. HEENT - Normocephalic / Atraumatic, Extraoccular movements intact, trachea midline, thyroid within normal limits. CV - pulse regular, Warm extremities with appropriate color of nailbeds. RESP - No obvious wheezing, No Shortness of Breath, No overexertion response to exam maneuvers. COORDINATION - remains intact. PSYCH - Alert and Oriented x4, Attentive and appropriate, constitutionally normal, displays normal mood and affect per situation, answered questions appropriately during examination, demonstrated appropriate attention during discussion, demonstrated appropriate cognitive reasoning and understanding of the medical condition by asking appropriate questions regarding the diagnosis and risks/benefits/alternatives of treatment modalities. No obvious deficits in memory, reasoning, or intellect. Cervical: SKIN - No rashes or bruising in the area of the patient s pain. LYMPH NODES - demonstrate no obvious enlargement. EXTREMITIES - Upper extremities are warm, with minimal edema and palpable pulses Tenderness to palpation noted in the cervical spine and paraspinal musculature. Pain is elicited with flexion, extension, and lateral rotation of the cervical spine. Range of motion is diminished with these motions due to pain. Facet palpation is noted to be somewhat tender but not concordant with the patient s normal pain complaints. STRENGTH - noted to be 5 out of 5 all muscle groups bilateral upper extremities including muscles involving shoulder flexion and abduction, elbow flexion and extension, as well as wrist flexion and extension and intrinsic muscles of the hand. No notable atrophy, fasciculations or spasm. SENSORY - No notable sensory deficits in the bilateral upper extremities to touch or pinprick in all dermatomal distributions with exception to decreased sensation in the Left C6, C7 dermatomal distribution(s). Spurlings sign is Positive Assessment/Treatment Plan: Gissel was seen today for neck pain. Diagnoses and all orders for this visit: Cervical radiculopathy - X-ray spine cervical 4 or 5 views; Future - EMG With NCV; Future - Ambulatory referral to Physical Therapy (Non-[facility]); Future Cervical spine pain - X-ray spine cervical 4 or 5 views; Future - Ambulatory referral to Physical Therapy (Non[facility]); Future Physical/Aquatic Therapy - It is felt that the patient will benefit from a course of physical therapy focusing on the above mentioned diagnosis. We will recommend that the physical therapist fully evaluate and treat at their discretion considering the modalities that are most useful for the condition being treated. This may include modalities of comfort including moist heat, ultrasound, and TENS therapy. It may also utilize manual therapy and myofascial release for the myofascial component of the patient s pain. It will likely advance to modalities aimed at stabilizing and strengthing the target area while improving range of motion as well. We are also requesting that the physical therapist send notes that will keep our clinic updated to the patient s progress. Cervical spine xray Imaging/Diagnostic Testing - It is felt that additional diagnostic testing is necessary to further evaluate the patients current pain pathology. For this reason, we will order additional imaging/diagnostic testing noted above. It is hopeful that this study will identify a significant pain generator that will be amenable to therapy. It is felt that this modality is necessary due to the severity and chronicity of symptoms and physical exam findings combined with the lack of recent imaging/diagnostic testing of the area. Bilateral upper extremity EMG/Diagnostic Testing - It is felt that additional diagnostic testing is necessary to further evaluate the patients current pain pathology. For this reason, we will order additional imaging/diagnostic testing noted above. It is hopeful that this study will identify a significant pain generator that will be amenable to therapy. It is felt that this modality is necessary due to the severity and chronicity of symptoms and physical exam findings combined with the lack of recent imaging/diagnostic testing of the area. Follow up after PT, Xray and EMG The medications prescribed have been reviewed for medication interactions/contraindications and/or for upcoming procedures: continue current medication regimen without any changes. DISCUSSION: Treatment options discussed with patient and all questions answered to patient's satisfaction. Discussed the rules and regulations surrounding prescription of opioids and compliance at length. Failure to follow the rules and regulation will result in tapering and discontinuation of medications if applicable. Prescribed medication that requires intensive monitoring for toxicity We do not currently prescribe any controlled substance from this practice. Treatment plans discussed but not opted for at this time: Cervical spine MRI. Patient would like to proceed with the current outlined treatment plan before moving forward with any other options. The spine model was demonstrated and MRI and EMG was reviewed and used to explain the condition. Chronic conditions not treated during this visit that affected my overall medical decision making: Anxiety and Depression OARRS: Reviewed. Scribe Statement: Scribed for and in the presence of ANTHONY EPPERSON PA-C by Bhakti Worthy CNA. Provider Statement: ANTHONY Villegas PA-C, personally performed the services described in the documentation, as scribed by Bhakti Worthy CNA in my presence, and it is both accurate and complete. Bhakti Worthy CNA 09/11/23 0944 Bhakti Worthy CNA 09/11/23 1008 Anthony Epperson PA-C 09/11/23 1138 documented in this encounter [facility] 06-29-2021 Evaluation note Encounter Date Diagnosis Assessment Notes Jun, Sacroiliitis (ICD-10 - M46.1) Independently reviewed the plain x-ray of the lumbar spine and sacroiliac region showing 2 cages compared to previous and preop. There has been no hardware difficulties. Patient clinically is doing well at 6 months I suspect she is functionally fused. Her activity is unlimited; at this point I will discharge her from my care. I will follow up with her on an as-needed basis. Jun, History of lumbar fusion (ICD-10 - Z98.1) Ti Knight Other 01-25-2022 NoteEXAMINATION: XR CHEST 2 V HISTORY: COVID-19 COMPARISON: 10/28/2015 TECHNIQUE: PA and lateral FINDINGS: LUNGS: No significant pulmonary parenchymal abnormalities. VASCULATURE: No increased pulmonary vasculature. PLEURA: No pneumothorax, effusion, or pleural thickening. CARDIAC: No cardiomegaly or cardiac silhouette abnormality. MEDIASTINUM: No visible mass or adenopathy. BONES: No fracture or visible bone lesion. Cervical fusion hardware OTHER: Negative. IMPRESSION: No acute disease. Electronically authenticated by: DILLON RAYO Date: 2021-05-02 13:08[facility]12-23-2021 Evaluation note* Encounter Date Diagnosis Assessment Notes Treatment Notes Treatment Clinical Notes Mar, Inflammation of right sacroiliac joint (ICD-10 - M46.1) The patient is now nearly 3 months status post right sacroiliac fusion. She says that she is at least 80% better she walks well and is overall happy with her result. She her activity is essentially unlimited at this point I will see her again in 3 months with an x-ray of her sacroiliac joint. Patient understands and agrees Mar, History of lumbar fusion (ICD-10 - Z98.1) Ti Knight Other 10-28-2021 Evaluation note* Encounter Date Diagnosis Assessment Notes Treatment Notes Treatment Clinical Notes Jan, Sacroiliitis (ICD-10 - M46.1) At 1 month postop the patient has essentially no sacroiliac pain. She is taking minimal pain medication ambulating about well I am happy with her progress. I will see her back in 2 months with a plain x-ray of the pelvis. She will not lift more than 10 to 20 pounds no impact aerobics no running. She needs to continue to limit her activity. Ti Knight Other 08-01-2015 History general Narrative - Reported* Type Description Date Medical History spontaneous pneumothorax Medical History anxiety with depression Surgical History CERVICAL SPINE SX PER DR CLARK 2014 Surgical History chest tube November 2014 Surgical History L5/S1 PE DR MEDRANO 2007 Surgical History LT WRIST ARTHROSCOPY 2003 Surgical History THORACIC SX 2014 Surgical History RT KNEE SCOPE PER DR HARLEY Hospitalization History See Above Ti Knight Other evaluation noteNo assessment information available [facility] Diagnosis Sesamoiditis of left foot- Primary Left foot pain Pain in soft tissues of limb Capsulitis of metatarsophalangeal (MTP) joint of left foot Metatarsalgia, left foot [facility] Diagnosis Sesamoiditis of left foot- Primary [facility]* Diagnosis Spasm of muscle- Primary Anxiety Anxiety state, unspecified Wellness examination Left foot pain- Primary Pain in soft tissues of limb Metatarsalgia, left foot- Primary Capsulitis of metatarsophalangeal (MTP) joint of left foot Sesamoiditis of left foot Chronic migraine without aura without status migrainosus, not intractable (CMS/HCC)- Primary Migraine without aura, not intractable, without status migrainosus (CMS/HCC) Migraine without aura (CMS/HCC) Migraine without aura, without mention of intractable migraine without mention of status migrainosus Nausea Nausea alone [facility] Diagnosis Spasm of muscle- Primary Anxiety Anxiety state, unspecified Wellness examination Left foot pain- Primary Pain in soft tissues of limb Metatarsalgia, left foot- Primary Capsulitis of metatarsophalangeal (MTP) joint of left foot Sesamoiditis of left foot [facility]* Diagnosis Spasm of muscle- Primary Anxiety Anxiety state, unspecified Wellness examination Left foot pain- Primary Pain in soft tissues of limb Sesamoiditis of left foot- Primary Capsulitis of metatarsophalangeal (MTP) joint of left foot Metatarsalgia, left foot [facility]* Diagnosis Onset Date Resolution Status Admit Date Contact with or suspected exposure to severe acute respiratory syndrome noneactive February 162023 3:18pm Sore throat noneactive February 3:18pm [facility] Work Phone: Evaluation note* Diagnosis Spasm of muscle- Primary Anxiety Anxiety state, unspecified Wellness examination Left foot pain- Primary Pain in soft tissues of limb Migraine without aura, not intractable, without status migrainosus (CMS/HCC) [facility]* Diagnosis Spasm of muscle- Primary Anxiety Anxiety state, unspecified Wellness examination Left foot pain- Primary Pain in soft tissues of limb Sesamoiditis of left foot [facility]* Diagnosis Left foot pain- Primary Pain in soft tissues of limb [facility]* Diagnosis Left foot pain- Primary Pain in soft tissues of limb documented in this encounter [facility]* Diagnosis Other muscle spasm Spasm of muscle documented in this encounter [facility]* Diagnosis Cervical radiculopathy- Primary Brachial neuritis or radiculitis nos Cervical spine pain [facility] Diagnosis Spasm of muscle- Primary Anxiety Anxiety state, unspecified Wellness examination Left foot pain- Primary Pain in soft tissues of limb Uterine prolapse Uterine prolapse without mention of vaginal wall prolapse Rectocele documented in this encounter [facility] HealthcareInstructionsNot on filedocumented in this encounterProOhiohealth [facility] SystemReason for referral (narrative)* Consultation (Routine) - Pending Review Specialty Diagnoses / Procedures Referred By David valente Referred To Contact Podiatry Diagnoses Left foot pain Procedures [place] OFFICE/OUTPATIENT NEW HIGH MDM 60 MINUTES Bhakti Talavera NP [address] [place] [address] Federico Mckeon DPM [address] [place] [address] Referral ID Status Reason Start Date Expiration Date Visits Requested Visits Authorized [id number] Pending Review Specialty Services Required 12/24/2023 06/21/2024 1 1 [facility] Healthcare Summary Purpose Family History Relationship Condition Age at Onset Recorded Date/T keith Not Specified Chronic mental illness Unknown Relationship Condition Age at Onset Recorded Date/T keith mother Chronic mental illness Unknown Chiari malformation Unknown Syringoma Unknown brother Epilepsy Unknown grandparent Malignant neoplasm Unknown grandparent Heart disease Unknown mother Family history of mental disorder Unknown Advance Directives Advance Directive Response Recorded Date/ Time Advance Directives No December 8:14am Chief Complaint and Reason for Visit Chief Complaint Pain Chief Complaint Admit Date sore throat, fever February 17, 2024 3:18pm Reason for Visit Admit Date Contact with or suspected ex posure to severe acute respiratory syndrome February 17, 2024 3:18pm Sore throat February 17, 2024 3:18pm Reason for Referral Specialty Diagnoses / Procedures Referred By Contac t Referred To Contact Rehabilitation Diagnoses Cervical radiculopathy Cervical spine pain Anthony Epperson PA-C [address] [place] [address] Referral ID Status Reason Start Date Expiration Date Visits Requested Visits Authorized [id number] Pending Review Specialty Services Required 09/11/2023 03/12/2024 1 1 Specialty Diagnoses / Procedures Referred By Contac t Referred To Contact Diagnoses Cervical radiculopathy Procedures EMG With NCV Anthony Epperson PA-C [address], [address] [place] [id number] Referral ID Status Reason Start Date Expiration Date V isits Requested Visits Authorized [id number] Pending Review 09/11/2023 09/10/2024 1 1 Additional Source Comments INFORMATION SOURCE (unrecogn ized section and content) DATE CREATED AUTHOR 08/23/2020 [facility] DATE CREATED AUTHOR AUTHOR'S ORGANIZ ATION 07/18/2021 [facility] DATE CREATED AUTHOR AUTHOR'S ORGANIZ ATION 01/06/2022 [facility] DATE CREATED AUTHOR AUTHOR'S ORGANIZ ATION 07/14/2024 [facility] EPIC DATE CREATED AUTHOR AUTHOR'S ORGANIZ ATION 07/25/2024 [facility] Goals (unrecognized section and content) Goals may be documented in a n alternate sectionNo InformationNo InformationNo InformationGoals may be documented in an alternate sectionNot on filedocumented as of this encounter REASON FOR VISIT (unrecogniz ed section and content) Reason Comments Foot Pain Lt ft pain Specialty Diagnoses / Procedures Referred By Contac t Referred To Contact Podiatry Diagnoses Left foot pain Procedures [place] OFFICE/OUTPATIENT NEW HIGH MDM 60 MINUTES Bhakti Talavera NP [address] [place] [address] Federico Mckeon DPM [address] [place] [address] Referral ID Status Reason Start Date Expiration Date V isits Requested Visits Authorized [id number] Closed Specialty Services Required 12/24/2023 06/21/2024 1 1 Reason Onset Date Comments Med Refill 01/15/2024 Reason Comments Foot Pain Left STJ F/U Reason Comments Foot Pain Left ft pain F/U Reason Comments Med Refill Reason Comments Neck Pain Reason Comments Uterine Prolapse Care Teams (unrecognized sec tion and content) Car Oiler Relationship Specialty Start Date End Date Carlos Desai MD [address] [place] [phone] PCP - General Family Medicine 12/11/23 Bhakti Talavera NP [address] [place] [phone] Nurse Practitioner Family Medicine 03/20/23 Car Oiler Relationship Specialty Start Date End Date Carlos Desai MD [address] [place] [phone] PCP - General Family Medicine 12/11/23 Bhakti Talavera NP [address] [place] [phone] Nurse Practitioner Family Medicine 03/20/23 Car Oiler Relationship Specialty Start Date End Date Carlos Desai MD [address] [place] [phone] PCP - General Family Medicine 12/11/23 Bhakti Talavera NP [address] [place] [phone] Nurse Practitioner Family Medicine 03/20/23 Car Oiler Relationship Specialty Start Date End Date Carlos Desai MD [address] [place] [phone] PCP - General Family Medicine 12/11/23 Bhakti Talavera NP [address] [place] [phone] Nurse Practitioner Family Medicine 03/20/23 Car Oiler Relationship Specialty Start Date End Date Carlos Desai MD [address] [place] [phone] PCP - General Family Medicine 12/11/23 Bhakti Talavera NP [address] [place] [phone] Nurse Practitioner Family Medicine 03/20/23 Car Oiler Relationship Specialty Start Date End Date Carlos Desai MD [address] [place] [phone] PCP - General Family Medicine 12/11/23 Bhakti Talavera NP [address] [place] [phone] Nurse Practitioner Family Medicine 03/20/23 Team Status: Active Member Role Status Dates Bhakti Talavera Primary Care Provider Active Team Status: Inactive Member Role Status Dates Bhakti Talavera Primary Care Provider Active Sta rt: February 17, 2024 End: February 17, 2024 Amanda Craig APRN Attending Provider Active S tart: February 17, 2024 End: February 17, 2024 Car Oiler Relationship Specialty Start Date End Date Carlos Desai MD [address] [place] [phone] PCP - General Family Medicine 12/11/23 Bhakti Talavera NP [address] [place] [phone] Nurse Practitioner Family Medicine 03/20/23 Car Oiler Relationship Specialty Start Date End Date Carlos Desai MD [address] [place] [phone] PCP - General Family Medicine 12/11/23 Bhakti Talavera NP [address] [place] [phone] Nurse Practitioner Family Medicine 03/20/23 Car Oiler Relationship Specialty Start Date End Date Carlos Desai MD [address] [place] [phone] PCP - General Family Medicine 12/11/23 Bhakti Talavera NP [address] [place] [phone] Nurse Practitioner Family Medicine 03/20/23 Car Oiler Relationship Specialty Start Date End Date Carlos Desai MD [address] [place] [phone] PCP - General Family Medicine 12/11/23 Bhakti Talavera NP [address] [place] [phone] Nurse Practitioner Family Medicine 03/20/23 Car Oiler Relationship Specialty Start Date End Date Carlos Desai MD [address] [place] [phone] PCP - General Family Medicine 12/11/23 Bhakti Talavera NP [address] [place] [phone] Nurse Practitioner [facility] 03/20/23 Car Oiler Relationship Specialty Start Date End Date Bhakti Talavera, STABILIZER OPERATOR-ECOLOGICAL ECONOMIST [address] [place] [phone] PCP - General Nurse Practitioner 04/10/19 Car Oiler Relationship Specialty Start Date End Date Carlos Desai MD [address] [place] [phone] PCP - General Family Medicine 12/11/23 Bhakti Talavera NP [address] [place] [phone] Nurse Practitioner [facility] Medicine 03/20/23 FOR RECORDS PERTAINING TO PATIENTS WHO ARE OR HAVE BEEN ENROLLED IN A CHEMICAL DEPENDENCY/SUBSTANCEABUSE PROGRAM, SOME INFORMATION MAY BE OMITTED. This clinical summary was aggregated from multiple sources. Caution should be exercised in using it in the provision of clinical care. This summary normalizes information from multiple sources, and as a consequence, information in this document may materially change the coding, format and clinical context of patient data. In addition, data may be omitted in some cases. CLINICAL DECISIONS SHOULD BE BASED ON THE PRIMARY CLINICAL RECORDS. [facility] [email or web address] [facility]. provides no warranty or guarantee of the accuracy or completeness of information in this document.
[2024-08-21 13:09] LABS: Age Gdln ACOG Testing Note (.); HPV Aptima Negative (Negative); IGP, Aptima HPV, rfx 16/18,45 Note (.)
== END 2024-08-17 19:49 | disposition home or self-care (01) ==
LOC: LAB 19:48
PROVIDERS: PCP Nurse Practitioner; Visit Provider Obstetrics & Gynecology
DX: Z01.419 Encounter for gynecological examination (general) (routine) without abnormal findings (principal)
CPT/HCPCS: 87624; 88175

== ENCOUNTER 2024-11-11 07:41 | Outpatient (OUT) | payer OTHER, SELFPAY ==
--- NOTE | 2024-11-11 07:44 | MM_ITS ---
Patient Name: DARIUS BRASWELL MR#: [id number] : 1985 Exam Date: 11/11/2024 Ordering Doctor: DR AMANDA GUTIERREZ . RADIOLOGY REPORT PROCEDURE: MM TOMOSYNTHESIS SCREENING BI COMPARISON: None. INDICATIONS: Screening for malignant neoplasm Calculator Name NCI Breast Cancer Risk Assessment Tool 5 Year Breast Cancer Risk 0.50% Lifetime Breast Cancer Risk 8.30% Personal Breast Cancer No Personal Ovarian Cancer No Treatments None Family Cancers Grandfather-maternal with lung cancer at age 50. LOCATION: [facility] BREAST COMPOSITION: The breasts are heterogeneously dense, which may obscure small masses. FINDINGS: DIAGNOSTIC CATEGORY 1--NEGATIVE. RIGHT BREAST: No significant suspicious finding. LEFT BREAST: No significant suspicious finding. RECOMMENDATIONS: ROUTINE MAMMOGRAM AND CLINICAL EVALUATION IN 12 MONTHS. PLEASE NOTE: A NORMAL MAMMOGRAM DOES NOT EXCLUDE THE POSSIBILITY OF BREAST CANCER. A CLINICALLY SUSPICIOUS PALPABLE LUMP SHOULD BE BIOPSIED. Dictated by: Aftab Schroeder DO on 11/11/2024 at 15:25 Approved by: Aftab Schroeder DO on 11/11/2024 at 15:26
== END 2024-11-11 07:42 | disposition home or self-care (01) ==
LOC: MAMMO 07:41
PROVIDERS: PCP Nurse Practitioner; Visit Provider Obstetrics & Gynecology
DX: Z12.31 Encounter for screening mammogram for malignant neoplasm of breast (principal); Z80.1 Family history of malignant neoplasm of trachea, bronchus and lung
CPT/HCPCS: 77063; 77067